=== PATIENT | female | born 1970 | race Caucasian/White ===

== ENCOUNTER → 2016-09-18 | Outpatient (CLI) | payer MEDICAID, OTHER ==
--- NOTE | 2016-09-18 17:37 | Diagnostic Imaging Report ---
PROCEDURE: MR imaging of the brain without contrast. TECHNIQUE: Multiplanar, multisequence MR imaging of the brain was performed without contrast. INDICATION: Confusion and tremors. FINDINGS: There is no diffusion restriction to suggest an acute infarct or other diffusion abnormality. There is mild periventricular and deep white matter T2 hyperintense signal abnormality areas slightly confluent around the ventricles and subcentimeter other lesions are seen. A few lesions are in a subcortical location. There is no abnormal signal seen in the brainstem or the cerebellum. There is also an area of curvilinear flow void suggestive of a tiny dilated vessel seen in the white matter posterior to the atrium of the left lateral ventricle. Surrounding T2 hyperintense area about 1 cm is present. This may relate to a developmental venous anomaly. There are no blood products seen at this site to suggest prior hemorrhage. The lateral ventricles are normal in size. No hypothalamic or pineal region mass. The pituitary gland is normal in size. The central vascular flow voids appear grossly unremarkable. The orbits appear grossly unremarkable. The inferior aspect of the right maxillary sinus demonstrates a 1.8 cm T2 bright lobulated lesion, likely a mucus retention cyst. IMPRESSION: 1. Periventricular, deep and subcortical white matter T2 hyperintense lesions more than expected for the patient's age, which may correlate with a demyelinating disease. Correlate clinically. 2. Incidental note of a minimally dilated vessels posterior to the atrium of the left lateral ventricle is favored to be related to a developmental venous anomaly. 3. Followup enhanced exam in 6 months is suggested. Dictated by: Dictated on workstation # [id number]
== END ==
LOC: RAD 12:57
PROVIDERS: ATTEND Nurse Practitioner Family
DX: R41.3 Other amnesia (principal); R51 Headache; F41.8 Other specified anxiety disorders; G25.0 Essential tremor
CPT/HCPCS: 70551

== ENCOUNTER 2022-05-17 16:38 | Observation (INO) | payer MEDICARE, MEDICAID ==
[~2022-05-17] VITALS: Ht 162.6 cm; Wt 70.0 kg
[2022-05-17 17:05] LABS: BASOPHILS # (AUTO) 0.1 10^3/uL (0.0-0.1); BASOPHILS % (AUTO) 1 % (0-10); EOSINOPHILS # (AUTO) 0.2 10^3/uL (0.0-0.3); EOSINOPHILS % (AUTO) 3 % (0-10); HEMATOCRIT 40 % (35-52); HEMOGLOBIN 13.1 g/dL (11.5-16.0); LYMPHOCYTES # (AUTO) 1.8 10^3/uL (1.0-4.0); LYMPHOCYTES % (AUTO) 27 % (12-44); MEAN CORPUSCULAR HEMOGLOBIN 29 pg (25-34); MEAN CORPUSCULAR HGB CONC 33 g/dL (32-36); MEAN CORPUSCULAR VOLUME 88 fL (80-99); MEAN PLATELET VOLUME 9.6 fL (9.0-12.2); MONOCYTES # (AUTO) 0.6 10^3/uL (0.0-1.0); MONOCYTES % (AUTO) 9 % (0-12); NEUTROPHILS # (AUTO) 4.1 10^3/uL (1.8-7.8); NEUTROPHILS % (AUTO) 61 % (42-75); PLATELET COUNT 324 10^3/uL (130-400); WHITE BLOOD COUNT 6.8 10^3/uL (4.3-11.0)
[2022-05-17 17:09] LABS: ALBUMIN 4.4 GM/DL (3.2-4.5)
[2022-05-17 17:10] LABS: POTASSIUM 3.6 MMOL/L (3.6-5.0)
[2022-05-17 17:11] LABS: CALCIUM 9.2 MG/DL (8.5-10.1); INR 0.9 (0.8-1.4); PROTHROMBIN TIME PATIENT 12.6 SEC (12.2-14.7)
[2022-05-17 17:12] LABS: TOTAL PROTEIN 7.7 GM/DL (6.4-8.2)
[2022-05-17 17:14] LABS: BILIRUBIN,TOTAL 0.3 MG/DL (0.1-1.0)
[2022-05-17 17:16] LABS: CREATININE SERUM 0.73 MG/DL (0.60-1.30)
[2022-05-17 17:18] LABS: MAGNESIUM 2.1 MG/DL (1.6-2.4)
--- NOTE | 2022-05-17 17:23 | Diagnostic Imaging Report ---
INDICATION: Chest pain. TECHNIQUE: Single view chest 4:58 PM. CORRELATION STUDY: None. FINDINGS: Sternal wires are present with aortic valve prosthesis. Heart size, mediastinum and vasculature overall within normal limits. The lungs are clear with no consolidating infiltrate. Likely minimal scarring or atelectasis in the right perihilar region. There is no significant effusion or pneumothorax. IMPRESSION: Negative appearing single view chest. Dictated by: Dictated on workstation # [id number]
--- NOTE | 2022-05-17 17:57 | ED Chest Pain ---
General Chief Complaint: Chest Pain Stated Complaint: TIGHTNESS IN CHEST | HEAVINESS IN LT SHOULDER Nursing Triage Note: CHEST PAIN STARTED 4 DAYS AGO. COMES AND GOES MID STERNAL WITH RADIATION TO LEFT ARM. DIZZY AND SOB Source: patient Exam Limitations: no limitations (RONNIE BAY MD) History of Present Illness Date Seen by Provider: May 17, 2022 Time Seen by Provider: 16:57 Initial Comments This 51-year-old woman presents to the emergency room with primary complaint of chest pressure that radiates to her left arm. She has had this chest pain intermittently for 4 days and it has been present all day today. She also complains of a rather intense right-sided headache that started this morning. She has felt lightheaded and off-balance. She has associated nausea. She reports her disequilibrium is making her feel as though she will fall when she walks. She also complains of some mild cough and throat irritation but denies fever or chills. She reports accelerated blood pressure. She reports blood pressure is elevated because she has been off of her medications for couple of weeks. She ran out of them and has not been able to get them filled because she is establishing at a new clinic. She has an appointment coming up on Thursday but was not able to get medications filled before that appointment. She also takes warfarin for stroke prophylaxis with a mechanical heart valve. She has been off the warfarin for a couple of weeks as well. She reports seeing some dark spots in the vision of her left thigh which is relatively new as well. She is establishing at the [facility] clinic on [facility] in [place]. She does not presently have a map and chart mounter. She reports previously seeing Dr. Foster at the [facility] in [place] but states he is no longer practicing at that location. Last known well time in regard to her neurologic complaints was prior to midnight. She is significantly hypertensive on exam. Patient's verbal report is the primary history source. (RONNIE BAY MD) Allergies and Home Medications Allergies Coded Allergies: Penicillins (Verified Allergy, Unknown, 05/17/22) aspirin (Verified Allergy, Unknown, 05/17/22) diphenhydramine (Verified Allergy, Unknown, 05/17/22) morphine (Verified Allergy, Unknown, 05/17/22) tramadol (Verified Allergy, Unknown, 05/17/22) Patient Home Medication List Home Medication List Reviewed: Yes (RONNIE BAY MD) Home Medication List Reviewed: Yes (RODGER LEON MD) Review of Systems Review of Systems Constitutional: no symptoms reported EENTM: No Symptoms Reported Respiratory: See HPI, Shortness of Air Cardiovascular: See HPI Gastrointestinal: No Symptoms Reported Genitourinary: No Symptoms Reported Musculoskeletal: no symptoms reported Skin: no symptoms reported Psychiatric/Neurological: See HPI Endocrine: No Symptoms Reported Hematologic/Lymphatic: No Symptoms Reported (RONNIE BAY MD) Past Wulonlc-Ucihfd-Rdyzeb Hx Patient Social History Tobacco Use?: Yes Tobacco type used: Cigars Smoking Status: Current Everyday Smoker Use of E-Cig and/or Vaping dev: No Substance use?: No Substance type: Marijuana Substance frequency: Once in a while Alcohol Use?: No Pt feels they are or have been: No (RONNIE BAY MD) Immunizations Up To Date Influenza Vaccine Up-to-Date: No; Not Current First/Initial COVID19 Vaccinat: DECLINED (RONNIE BAY MD) Past Medical History Surgery/Hospitalization HX: HEART VALVE REPLACEMENT, 3 C SECTIONS, GB, APPENDIX, CYST REMOVAL. MED HX: HTN, DEPRESSION,MIGRAINES, ASTHMA, UTI Surgeries: Yes (Ovarian cystectomy) Appendectomy, Section, Gallbladder, Valve Replacement (Mechanical valve replacement) Respiratory: Yes Asthma Cardiac: Yes Valvular Heart Disease (With mechanical valve replacement) Neurological: Yes (Occasional tremors, "brain lesions") : No Reproductive Disorders: No Genitourinary: No Gastrointestinal: No Musculoskeletal: Yes (Cervical spinal stenosis and chronic neck pain) Endocrine: No HEENT: Yes (Strabismus of right eye) Cancer: No Psychosocial: Yes Depression (RONNIE BAY MD) Physical Exam Vital Signs Vital Signs - First Documented 05/17/22 16:40 Temp 36.2 Pulse 79 Resp 15 B/P (MAP) 196/103 (134) Pulse Ox 99 O2 Delivery Room Air (RODGER LEON MD) Vital Signs Capillary Refill : Less Than 3 Seconds (RONNIE BAY MD) Height, Weight, BMI Height: '" Weight: lbs. oz. 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 Otherwise no acute focal deficit) Skin: Normal Color, Warm/Dry (RONNIE BAY MD) Neurologic/Psychiatric: Other (Subtle disequilibrium with gait. Otherwise no acute focal deficit) (RODGER LEON MD) Progress/Results/Core Measures Results/Orders Lab Results Laboratory Tests Test 05/17/22 16:50 05/17/22 17:22 Range/Units White Blood Count 6.8 4.3-11.0 10^3/uL Red Blood Count 4.58 3.80-5.11 10^6/uL Hemoglobin 13.1 11.5-16.0 g/dL Hematocrit 40 35-52 % Mean Corpuscular Volume 88 80-99 fL Mean Corpuscular Hemoglobin 29 25-34 pg Mean Corpuscular Hemoglobin Concent 33 32-36 g/dL Red Cell Distribution Width 15.0 H 10.0-14.5 % Platelet Count 324 130-400 10^3/uL Mean Platelet Volume 9.6 9.0-12.2 fL Immature Granulocyte % (Auto) 0 % Neutrophils (%) (Auto) 61 42-75 % Lymphocytes (%) (Auto) 27 12-44 % Monocytes (%) (Auto) 9 0-12 % Eosinophils (%) (Auto) 3 0-10 % Basophils (%) (Auto) 1 0-10 % Neutrophils # (Auto) 4.1 1.8-7.8 10^3/uL Lymphocytes # (Auto) 1.8 1.0-4.0 10^3/uL Monocytes # (Auto) 0.6 0.0-1.0 10^3/uL Eosinophils # (Auto) 0.2 0.0-0.3 10^3/uL Basophils # (Auto) 0.1 0.0-0.1 10^3/uL Immature Granulocyte # (Auto) 0.0 0.0-0.1 10^3/uL Prothrombin Time 12.6 12.2-14.7 SEC INR Comment 0.9 0.8-1.4 Activated Partial Thromboplast Time 31 24-35 SEC Sodium Level 137 135-145 MMOL/L Potassium Level 3.6 3.6-5.0 MMOL/L Chloride Level 105 98-107 MMOL/L Carbon Dioxide Level 21 21-32 MMOL/L Anion Gap 11 5-14 MMOL/L Blood Urea Nitrogen 6 L 7-18 MG/DL Creatinine 0.73 0.60-1.30 MG/DL Estimat Glomerular Filtration Rate 101 BUN/Creatinine Ratio 8 Glucose Level 87 70-105 MG/DL Calcium Level 9.2 8.5-10.1 MG/DL Corrected Calcium 8.9 8.5-10.1 MG/DL Magnesium Level 2.1 1.6-2.4 MG/DL Total Bilirubin 0.3 0.1-1.0 MG/DL Aspartate Amino Transf (AST/SGOT) 17 5-34 U/L Alanine Aminotransferase (ALT/SGPT) 16 0-55 U/L Alkaline Phosphatase 65 40-136 U/L Myoglobin 35.6 10.0-92.0 NG/ML Troponin I < 0.028 <0.028 NG/ML C-Reactive Protein High Sensitivity 0.17 0.00-0.50 MG/DL B-Type Natriuretic Peptide 88.8 <100.0 PG/ML Total Protein 7.7 6.4-8.2 GM/DL Albumin 4.4 3.2-4.5 GM/DL Influenza Type A (RT-PCR) Not Detected Not Detecte Influenza Type B (RT-PCR) Not Detected Not Detecte SARS-CoV-2 RNA (RT-PCR) Not Detected Not Detecte (RODGER LEON MD) My Orders Orders - RODGER LEON MD Acetaminophen Tablet (Tylenol Tablet) (05/17/22 19:00) Ct Angio Head/Neck (05/17/22 18:48) Ns Iv 1000 Ml (Sodium Chloride 0.9%) (05/17/22 18:48) Iohexol Injection (Omnipaque 350 Mg/Ml 1 (05/17/22 19:00) Received Contrast (Hold Metformin- Contr (05/17/22 19:00) Ns (Ivpb) (Sodium Chloride 0.9% Ivpb Bag (05/17/22 19:00) (RODGER LEON MD) Medications Given in ED Current Medications Medications Dose Ordered Sig/Cliff Route Start Time Stop Time Status Last Admin Dose Admin Acetaminophen 1,000 mg ONCE ONCE PO 05/17/22 19:00 05/17/22 19:01 DC 05/17/22 19:13 1,000 MG Iohexol 100 ml ONCE ONCE IV 05/17/22 19:00 05/17/22 19:01 DC 05/17/22 19:11 75 ML Sodium Chloride 100 ml ONCE ONCE IV 05/17/22 19:00 05/17/22 19:01 DC 05/17/22 19:11 80 ML (RODGER LEON MD) Vital Signs/I&O 05/17/22 16:40 Temp 36.2 Pulse 79 Resp 15 B/P (MAP) 196/103 (134) Pulse Ox 99 O2 Delivery Room Air (RODGER LEON MD) Blood Pressure Mean: 134 Progress Progress Note #1: Time: 18:03 Progress Note Patient was seen and evaluated. She was interviewed by me personally. NIH SS was 0. Given her stated history, she has significant risk factors for severe disease. EKG demonstrated no ischemic changes and sinus rhythm per my interpretation. Patient has neurologic complaint of headache and subtle disequ ilibrium. CT of the head is pending. I am concerned with her warfarin noncompliance in the presence of mechanical heart valve. Chest pain work-up is also being pursued. Progress Note #2: Time: 18:[address] head was viewed by me. There appears to be lucency in the right parietal parenchyma of uncertain chronicity based on my interpretation. Radiologist interpretation is still pending. I have discussed the case with Dr. Leon at shift change, and she will be assuming care. Pending radiologist interpretation of CT head, CT angiogram head and neck may be an appropriate next step. Although she is rather hypertensive, this was not treated yet as acute or subacute stroke was still within the differential. If stroke syndrome remains suspect, permissive hypertension should be considered. Aspirin was not administered due to patient stated allergy. (RONNIE BAY MD) Progress Note : Time: 20:33 Progress Note Patient care assumed by me at shift change. CT angiography does not show any large vessel occlusions. She does have a few abnormalities in the right carotid and lesser in the left, suggestions per radiologist of fibromuscular dysplasia. She will be given weight-based dose Lovenox this evening, continued twice daily. Consultation to Dr. Virk, map and chart mounter. Dr. Flowers, hospitalist will be admitting. We will put her on cardiac stepdown. Vitals have improved her blood pressure is down to the 150s systolic. She is feeling better. (RODGER LEON MD) Initial ECG Impression Date: May 17, 2022 Initial ECG Impression Time: 16:47 Initial ECG Rate: 74 Initial ECG Rhythm: Normal Sinus Initial ECG Intervals: Normal Comment Normal sinus rhythm with no ST elevation or depression. Possible LVH. Borderline QT interval with QTC of 500 ms. (RONNIE BAY MD) Diagnostic Imaging Comments [facility] [place] NAME: MAURICIO OSHEA [facility] REC#: [id number] PT STATUS: REG ER : 1970 PHYSICIAN: RONNIE BAY MD ADMIT DATE: 05/17/22/ER Signed Date of Exam:05/17/22 CHEST 1 VIEW, AP/PA ONLY INDICATION: Chest pain. TECHNIQUE: Single view chest 4:58 PM. CORRELATION STUDY: None. FINDINGS: Sternal wires are present with aortic valve prosthesis. Heart size, mediastinum and vasculature overall within normal limits. The lungs are clear with no consolidating infiltrate. Likely minimal scarring or atelectasis in the right perihilar region. There is no significant effusion or pneumothorax. IMPRESSION: Negative appearing single view chest. Dictated by: Dictated on workstation # [id number] Dict: 05/17/22 1715 Trans: 05/17/221901 [facility] [id number] Interpreted by: HERMINIO CALLES DO Electronically signed by: HERMINIO CALLES DO 05/17/221901 Diagonstic Imaging: CT Comments [facility] [place], [place] NAME: MAURICIO OSHEA [facility] REC#: [id number] PT STATUS: REG ER : 1970 PHYSICIAN: RONNIE BAY MD ADMIT DATE: 05/17/22/ER Signed Date of Exam:05/17/22 CT HEAD WO-R/O STROKE PROCEDURE: CT head w/o r/o stroke. TECHNIQUE: Multiple contiguous axial images were obtained through the brain without the use of intravenous contrast. Auto Exposure Controls were utilized during the CT exam to meet ALARA standards for radiation dose reduction. INDICATION: 51-year-old female, chest pain starting 4 days ago, comes and goes with midsternal radiation to the left arm, dizziness, shortness of breath. Neurological deficit. CORRELATION STUDY: MRI 09/18/2016. FINDINGS: Ventricles and sulci are age-appropriate. There is suggestion of a few very small scattered areas of low-attenuation in the deep white matter, slightly greater than expected for the patient's age (this was noted on prior MRI as well). Slightly more prominent area noted in the right frontal parietal region appears to largely follow sulci distribution. No intracranial hemorrhage. No midline shift or mass effect. Bony calvarium is intact. Probable cyst or polyp in right maxillary sinus. IMPRESSION: A few scattered faint areas of decreased attenuation. Somewhat similar to prior MRI which may reflect senescent changes or changes of small vessel ischemic disease. As suggested on prior MRI study, the possibility of a demyelinating process is not excluded. Given findings and history, if further assessment is desired, follow-up MRI would be recommended. Dictated by: Dictated on workstation # [id number] Dict: 05/17/221803 Trans: 05/17/221902 [facility] [id number] Interpreted by: HERMINIO CALLES DO Electronically signed by: HERMINIO CALLES DO 05/17/221902 Diagonstic Imaging: CT Comments [facility]. [place] NAME: MAURICIO OSHEA [facility] REC#: [id number] PT STATUS: REG ER : 1970 PHYSICIAN: RODGER LEON MD ADMIT DATE: 05/17/22/ER Draft Date of Exam:05/17/22 CT ANGIO HEAD/NECK PROCEDURE: CT angiography of the head and CT angiography of the neck with and without contrast. TECHNIQUE: Contiguous noncontrast images were obtained from the skull base through the vertex. After intravenous contrast administration, helical CT angiography of the neck was performed. Source data was reformatted into 3D MIP projections. Delayed post contrast acquisition was also obtained. Auto Exposure Controls were utilized during the CT exam to meet ALARA standards for radiation dose reduction. INDICATION: 51-year-old female, disequilibrium, headache, off Coumadin x 2 weeks. COMPARISON: CT head 05/17/2022. FINDINGS: CTA NECK: Aorta: Aortic arch is limited in evaluation with artifact present. Does appear relatively normal, with standard three vessel branching pattern. Note made of prior sternotomy with cardiac valve. Right Common/Internal/External Carotid Artery: Right common carotid artery unremarkable. Carotid bifurcation unremarkable. External carotid arteries are patent. At the mid to distal aspect of the extracranial ICA, there is an irregular, somewhat beaded appearance about the internal carotid artery. Definitive intraluminal filling defect is not otherwise suggested and artery is patent to the skull base. Left Common/Internal/External Carotid Artery: Left common carotid artery, carotid bifurcation as well as external carotid artery are patent. There is some redundancy of the internal carotid artery. Question of very slight irregularity of the mid aspect of the left internal carotid artery but less pronounced than that on the right. The carotid artery is patent to the level of the skull base. Vertebral arteries: Dominant right vertebral artery. Vertebral arteries are patent to the skull base. Distal left vertebral artery becomes fairly small and is nearly string-like and appears to terminate into a PICA. Non-vascular: No concerning cervical lymphadenopathy. Lung apices with subpleural bullous changes. CTA HEAD: Anterior Circulation: The intracranial internal carotid arteries are patent. The bilateral middle cerebral arteries are patent and without stenosis. The anterior cerebral arteries are patent and without stenosis. Posterior Circulation: Dominant right vertebral artery terminates into the basilar artery. String-like left vertebral artery appears to terminate into a PICA. The basilar artery is patent and without stenosis. The posterior cerebral arteries are patent. Post Contrast Head: No abnormal areas of intracranial enhancement. Dural venous system patent. IMPRESSION: 1. CTA [place] demonstrates a very small distal left vertebral artery appears to terminate into a PICA. No definitive evidence for large vessel occlusion. 2. Abnormal appearance about the right internal carotid artery and to a lesser degree left internal carotid artery. Imaging features suggest probable fibromuscular dysplasia. The irregularity on the right is considered at least moderate in severity. 3. Given the patient's significant symptoms, if further assessment is desired, MRI would be recommended. Dictated on workstation # [id number] Dict: 05/17/221912 Trans: 05/17/221999 E [id number] Interpreted by: HERMINIO CALLES DO Electronically signed by: (RODGER LEON MD) Departure Communication (Admissions) Time/Spoke to Admitting Phy: 20:[address] Flowers Time/Spoke to Consulting Phy: 20:[address] Virk (RODGER LEON MD) Impression Primary Impression: Chest pain Qualified Codes: R07.9 - Chest pain, unspecified Additional Impressions: Headache Qualified Codes: R51.9 - Headache, unspecified Dysequilibrium Mechanical heart valve present Subtherapeutic anticoagulation Disposition: ADMITTED INPATIENT Condition: Stable Admissions Decision to Admit Reason: Admit from ER (General) Decision to Admit/Date: May 17, 2022 Time/Decision to Admit Time: 20:33 (RODGER LEON MD) Departure-Patient Inst. Referrals: REYES AMAYA DO (PCP) Primary Care Physician [facility] (Family) Primary Care Physician Copy Copies To 1: REYES AMAYA JOSHUA T MD May 17, 2022 17:57 RODGER LEON MD May 17, 2022 20:16
--- NOTE | 2022-05-17 18:34 | Diagnostic Imaging Report ---
PROCEDURE: CT head w/o r/o stroke. TECHNIQUE: Multiple contiguous axial images were obtained through the brain without the use of intravenous contrast. Auto Exposure Controls were utilized during the CT exam to meet ALARA standards for radiation dose reduction. INDICATION: 51-year-old female, chest pain starting 4 days ago, comes and goes with midsternal radiation to the left arm, dizziness, shortness of breath. Neurological deficit. CORRELATION STUDY: MRI 09/18/2016. FINDINGS: Ventricles and sulci are age-appropriate. There is suggestion of a few very small scattered areas of low-attenuation in the deep white matter, slightly greater than expected for the patient's age (this was noted on prior MRI as well). Slightly more prominent area noted in the right frontal parietal region appears to largely follow sulci distribution. No intracranial hemorrhage. No midline shift or mass effect. Bony calvarium is intact. Probable cyst or polyp in right maxillary sinus. IMPRESSION: A few scattered faint areas of decreased attenuation. Somewhat similar to prior MRI which may reflect senescent changes or changes of small vessel ischemic disease. As suggested on prior MRI study, the possibility of a demyelinating process is not excluded. Given findings and history, if further assessment is desired, follow-up MRI would be recommended. Dictated by: Dictated on workstation # [id number]
[2022-05-17] MEDS ORDERED: NS IV 1000 ML 1,000 ML IV STA (18:48)
[2022-05-17] MEDS ORDERED: NS 100 ML (IVPB) BAG IV ONE (19:00)
[2022-05-17] MEDS ORDERED: ACETAMINOPHEN 500 MG TAB (TYLENOL) PO ONE (19:00)
[2022-05-17] MEDS ORDERED: IOHEXOL 350 MG/ML 100 ML (OMNIPAQUE 350) VIAL IV ONE (19:00)
[2022-05-17] MEDS ORDERED: HOLD METFORMIN - RECEIVED CONTRAST 20 ML VIAL IV SCH (19:00)
--- NOTE | 2022-05-17 20:02 | Diagnostic Imaging Report ---
PROCEDURE: CT angiography of the head and CT angiography of the neck with and without contrast. TECHNIQUE: Contiguous noncontrast images were obtained from the skull base through the vertex. After intravenous contrast administration, helical CT angiography of the neck was performed. Source data was reformatted into 3D MIP projections. Delayed post contrast acquisition was also obtained. Auto Exposure Controls were utilized during the CT exam to meet ALARA standards for radiation dose reduction. INDICATION: 51-year-old female, disequilibrium, headache, off Coumadin x 2 weeks. COMPARISON: CT head 05/17/2022. FINDINGS: CTA NECK: Aorta: Aortic arch is limited in evaluation with artifact present. Does appear relatively normal, with standard three vessel branching pattern. Note made of prior sternotomy with cardiac valve. Right Common/Internal/External Carotid Artery: Right common carotid artery unremarkable. Carotid bifurcation unremarkable. External carotid arteries are patent. At the mid to distal aspect of the extracranial ICA, there is an irregular, somewhat beaded appearance about the internal carotid artery. Definitive intraluminal filling defect is not otherwise suggested and artery is patent to the skull base. Left Common/Internal/External Carotid Artery: Left common carotid artery, carotid bifurcation as well as external carotid artery are patent. There is some redundancy of the internal carotid artery. Question of very slight irregularity of the mid aspect of the left internal carotid artery but less pronounced than that on the right. The carotid artery is patent to the level of the skull base. Vertebral arteries: Dominant right vertebral artery. Vertebral arteries are patent to the skull base. Distal left vertebral artery becomes fairly small and is nearly string-like and appears to terminate into a PICA. Non-vascular: No concerning cervical lymphadenopathy. Lung apices with subpleural bullous changes. CTA HEAD: Anterior Circulation: The intracranial internal carotid arteries are patent. The bilateral middle cerebral arteries are patent and without stenosis. The anterior cerebral arteries are patent and without stenosis. Posterior Circulation: Dominant right vertebral artery terminates into the basilar artery. String-like left vertebral artery appears to terminate into a PICA. The basilar artery is patent and without stenosis. The posterior cerebral arteries are patent. Post Contrast Head: No abnormal areas of intracranial enhancement. Dural venous system patent. IMPRESSION: 1. CTA tribe of [place] demonstrates a very small distal left vertebral artery appears to terminate into a PICA. No definitive evidence for large vessel occlusion. 2. Abnormal appearance about the right internal carotid artery and to a lesser degree left internal carotid artery. Imaging features suggest probable fibromuscular dysplasia. The irregularity on the right is considered at least moderate in severity. 3. Given the patient's significant symptoms, if further assessment is desired, MRI would be recommended. Dictated by: Dictated on workstation # [id number]
[2022-05-17] MEDS ORDERED: ENOXAPARIN 80 MG/0.8 ML (LOVENOX) SYR SC ONE (20:45)
[2022-05-17 21:30] VITALS: BP 172/88
[2022-05-17 21:45] VITALS: BP 176/89
[2022-05-17] MEDS ORDERED: NALOXONE 0.4 MG/ML 1 ML (NARCAN) VIAL IV PRN (21:45)
[2022-05-17] MEDS ORDERED: MELATONIN 3 MG TABLET PO PRN (21:45)
[2022-05-17] MEDS ORDERED: ONDANSETRON 4 MG (ZOFRAN) ORAL DISSOLVE TAB PO PRN (21:45)
[2022-05-17] MEDS ORDERED: CALCIUM CARBONATE 500 MG (TUMS) TAB.CHEW PO PRN (21:45)
[2022-05-17] MEDS ORDERED: NITROGLYCERIN 0.4 MG SL TABS BTL 25'S SL PRN (21:45)
[2022-05-17] MEDS ORDERED: LACTULOSE SYRUP 10GM/15ML (ENULOSE) 30ML UDC PO PRN (21:45)
[2022-05-17] MEDS ORDERED: amLODIPine 5 MG (NORVASC) TAB PO ONE (21:45)
[2022-05-17] MEDS ORDERED: MILK OF MAGNESIA 400 MG/5 ML 30 ML UDC PO PRN (21:45)
[2022-05-17] MEDS ORDERED: polyethylene glycoL POWDER 17 GM (MIRALAX) PACK PO PRN (21:45)
[2022-05-17] MEDS ORDERED: ANTACID SUSP 30 ML UDC (MYLANTA) PO PRN (21:45)
[2022-05-17] MEDS ORDERED: ONDANSETRON 4 MG/2 ML (SDV) Z0FRAN IV PRN (21:45)
[2022-05-17] MEDS ORDERED: PATIENT MAY USE OWN MEDS, ALL PO SCH (21:45)
[2022-05-17] MEDS ORDERED: BISACODYL 10 MG SUPP (DULCOLAX) PR PRN (21:45)
[2022-05-17] MEDS ORDERED: HYDROmorphone 2 MG/ML VIAL (DILAUDID) IV PRN (21:45)
[2022-05-17 23:00] VITALS: BP 170/88
[2022-05-17] MEDS: cloNIDine 0.1 MG (CATAPRES) TAB PO PRN (23:11)
[2022-05-17] MEDS ORDERED: RT-ALBUTEROL SULF 2.5 MG/3 ML PRE-MIX VIAL INH PRN (23:15)
[2022-05-18] VITALS (12 sets, daily range): BP systolic 123–162; BP diastolic 57–90
[2022-05-18 03:45] LABS: HEMATOCRIT 34 % (35-52); HEMOGLOBIN 10.8 g/dL (11.5-16.0); MEAN CORPUSCULAR HEMOGLOBIN 28 pg (25-34); MEAN CORPUSCULAR HGB CONC 32 g/dL (32-36); MEAN CORPUSCULAR VOLUME 89 fL (80-99); MEAN PLATELET VOLUME 10.1 fL (9.0-12.2); PLATELET COUNT 257 10^3/uL (130-400); WHITE BLOOD COUNT 5.4 10^3/uL (4.3-11.0)
[2022-05-18 04:00] LABS: ALBUMIN 3.3 GM/DL (3.2-4.5)
[2022-05-18 04:01] LABS: CALCIUM 8.4 MG/DL (8.5-10.1)
[2022-05-18 04:03] LABS: TOTAL PROTEIN 5.8 GM/DL (6.4-8.2)
[2022-05-18 04:05] LABS: BILIRUBIN,TOTAL 0.2 MG/DL (0.1-1.0)
[2022-05-18 04:06] LABS: CREATININE SERUM 0.69 MG/DL (0.60-1.30)
[2022-05-18] MEDS ORDERED: FLU QUADRIvalent (6 months+) 60 mcg/0.5 ml 2022-23 (Fluzone) IM ONE (07:30)
--- NOTE | 2022-05-18 08:03 | History & Physical-Hospitalist ---
History of Present Illness HPI/Chief Complaint Chief complaint: chest pain HPI: This is a 51-year-old female with a past medical history of mechanical heart valve performed by Dr. Foster at [facility] who presented to the ER with chest pain. Troponins negative. She had run out of her Coumadin several weeks ago. INR 0.9. Lovenox bridge started last night on admission and Coumadin 10 mg started. Patient having no new problems. Will transfer down to fourth floor. Source: patient Exam Limitations: no limitations Date Seen 05/18/22 Time Seen by a Provider: 11:00 Attending Physician Manisha Cota DO PCP Admitting Physician: Michelle Flowers DO Attending Physician: Michelle Flowers DO Referring Physician Date of Admission May 17, 2022 at 20:36 Home Medications & Allergies Home Medications Reviewed patient Home Medication Reconciliation performed by pharmacy medication reconciliations lot technician and/or nursing. Patients Allergies have been reviewed. Allergies Allergies Coded Allergies Penicillins (Verified Allergy, Unknown, 05/17/22) aspirin (Verified Allergy, Unknown, 05/17/22) diphenhydramine (Verified Allergy, Unknown, 05/17/22) morphine (Verified Allergy, Unknown, 05/17/22) tramadol (Verified Allergy, Unknown, 05/17/22) Past Uchayjd-Ebxorg-Obpxap Hx Patient Social History Marrital Status: single Employed/Student: unemployed Tobacco Use?: Yes Tobacco type used: Cigarettes Smoking Status: Current Everyday Smoker Smokeless Tobacco Frequency: Never a User Use of E-Cig and/or Vaping dev: No Substance use?: Yes Substance type: Marijuana Additional substance use comme: FOR PAIN Substance frequency: Couple times a week Alcohol Use?: No Pt feels they are or have been: No Immunizations Up To Date First/Initial COVID19 Vaccinat: DECLINED Tetanus Booster (TDap): More Than 5 Years Hepatitis A: No Hepatitis B: No Current Status status: No Advance Directives: No Communicates: Verbally Primary Language: Spanish Preferred Spoken Language: Spanish Is interpretation needed?: No Sensory deficits: Vision impairment Implanted or Applied Medical D: None Past Medical History Surgeries: Appendectomy, Section, Gallbladder, Valve Replacement (Me chanical valve replacement) Asthma Valvular Heart Disease (With mechanical valve replacement) Depression Review of Systems Constitutional: see HPI Cardiovascular: chest pain Physical Exam Physical Exam Vital Signs Vital Signs - First Documented 05/17/22 05/17/22 16:40 23:10 Temp 36.2 Pulse 79 Resp 15 B/P (MAP) 196/103 (134) Pulse Ox 99 O2 Delivery Room Air FiO2 21 Capillary Refill : Less Than 3 Seconds Height, Weight, BMI Height: '" Weight: lbs. oz. kg; 26.47 BMI Method: General Appearance: No Apparent Distress Eyes: Right Eye Normal Inspection, Right Eye PERRL HEENT: PERRL/EOMI, Normal ENT Inspection, Pharynx Normal, Moist Mucous Membranes Neck: Full Range of Motion, Normal Inspection, Non Tender Respiratory: Chest Non Tender, Lungs Clear, Normal Breath Sounds, No Accessory Muscle Use, No Respiratory Distress Cardiovascular: Regular Rate, Rhythm, No Edema, No Gallop, No JVD, No Murmur, Normal Peripheral Pulses Gastrointestinal: Normal Bowel Sounds, No Organomegaly, No Pulsatile Mass, Non Tender, Soft Back: Normal Inspection, No CVA Tenderness, No Vertebral Tenderness Extremity: Normal Capillary Refill, Normal Inspection, Normal Range of Motion, Non Tender, No Calf Tenderness, No Pedal Edema Neurologic/Psychiatric: Alert, Oriented x3, No Motor/Sensory Deficits, Normal Mood/Affect Skin: Normal Color, Warm/Dry Lymphatic: No Adenopathy Results Results/Procedures Labs Laboratory Tests 05/17/22 16:50 05/18/22 03:25 Patient resulted labs reviewed. Assessment/Plan Admission Diagnosis Assessment: Chest pain no evidence of ACS Mechanical heart valve Noncompliance with Coumadin requiring bridge of Lovenox Plan: Lovenox bridge Coumadin Monitor closely Admission Status: Observation Clinical Quality Measures AMI/AHF: ASA po Prior to arrival: No (ALLERGIC) MICHELLE FLOWERS DO May 18, 2022 08:02
--- NOTE | 2022-05-18 08:29 | Tele-ICU Progress Note ---
Progress Note video rounds completed 51 y/o female admitted with disequilibrium. Has hx of mechanical herat valve and on coumadin Currently hemodynamically normal On lovenox 70mg BID for anticoagulation Labds stable IMP: disequilibrium work up in progress currently stable PLAN: no acute changes for intervention Focused Exam Height, Weight, BMI Height: '" Weight: lbs. oz. kg; 26.47 BMI Method: Labs Laboratory Tests 05/17/22 16:50 05/18/22 03:25 Results Results/Procedures Lab Laboratory Tests 05/17/22 16:50 05/18/22 03:25 Results Results/Procedures Labs Laboratory Tests 05/17/22 16:50 05/18/22 03:25 Patient resulted labs reviewed. Results Labs Labs Laboratory Tests 05/17/22 16:50: White Blood Count 6.8, Red Blood Count 4.58, Hemoglobin 13.1, Hematocrit 40, Mean Corpuscular Volume 88, Mean Corpuscular Hemoglobin 29, Mean Corpuscular Hemoglobin Concent 33, Red Cell Distribution Width 15.0H, Platelet Count 324, Mean Platelet Volume 9.6, Immature Granulocyte % (Auto) 0, Neutrophils (%) (Auto) 61, Lymphocytes (%) (Auto) 27, Monocytes (%) (Auto) 9, Eosinophils (%) (Auto) 3, Basophils (%) (Auto) 1, Neutrophils # (Auto) 4.1, Lymphocytes # (Auto) 1.8, Monocytes # (Auto) 0.6, Eosinophils # (Auto) 0.2, Basophils # (Auto) 0.1, Immature Granulocyte # (Auto) 0.0, Prothrombin Time 12.6, INR Comment 0.9, Activated Partial Thromboplast Time 31, Sodium Level 137, Potassium Level 3.6, Chloride Level 105, Carbon Dioxide Level 21, Anion Gap 11, Blood Urea Nitrogen 6L, Creatinine 0.73, Estimat Glomerular Filtration Rate 101, BUN/Creatinine Ratio 8, Glucose Level 87, Calcium Level 9.2, Corrected Calcium 8.9, Magnesium Level 2.1, Total Bilirubin 0.3, Aspartate Amino Transf (AST/SGOT) 17, Alanine Aminotransferase (ALT/SGPT) 16, Alkaline Phosphatase 65, Myoglobin 35.6, Troponin I < 0.028, C-Reactive Protein High Sensitivity 0.17, B-Type Natriuretic Peptide 88.8, Total Protein 7.7, Albumin 4.4 05/17/22 17:22: Influenza Type A (RT-PCR) Not Detected, Influenza Type B (RT-PCR) Not Detected, SARS-CoV-2 RNA (RT-PCR) Not Detected 05/18/22 03:25: White Blood Count 5.4, Red Blood Count 3.83, Hemoglobin 10.8L, Hematocrit 34L, Mean Corpuscular Volume 89, Mean Corpuscular Hemoglobin 28, Mean Corpuscular Hemoglobin Concent 32, Red Cell Distribution Width 14.9H, Platelet Count 257, Mean Platelet Volume 10.1, Sodium Level 137, Potassium Level 4.0, Chloride Level 109H, Carbon Dioxide Level 19L, Anion Gap 9, Blood Urea Nitrogen 6L, Creatinine 0.69, Estimat Glomerular Filtration Rate 106, BUN/Creatinine Ratio 9, Glucose Level 88, Calcium Level 8.4L, Corrected Calcium 9.0, Total Bilirubin 0.2, Aspartate Amino Transf (AST/SGOT) 13, Alanine Aminotransferase (ALT/SGPT) 11, Alkaline Phosphatase 58, Total Protein 5.8L, Albumin 3.3, Triglycerides Level 78, Cholesterol Level 159, LDL Cholesterol Direct 107, VLDL Cholesterol 16, HDL Cholesterol 38L ZULEIKA MOESR MD May 18, 2022 08:29
[2022-05-18] MEDS: amLODIPine 5 MG (NORVASC) TAB PO SCH (08:45)
[2022-05-18] MEDS: ENOXAPARIN 80 MG/0.8 ML (LOVENOX) SYR SC SCH ×2 (08:46→20:03)
[2022-05-18] MEDS: DOCUSATE SODIUM 100 MG (COLACE) CAP PO SCH ×2 (08:58→20:03)
[2022-05-18] MEDS: SENNOSIDES 8.6 MG (SENOKOT) TAB PO SCH ×2 (08:58→20:03)
--- NOTE | 2022-05-18 09:20 | Consultation-Cardiology ---
HPI-Cardiology Cardiology Consultation Date of Consultation 05/18/22 Date of Admission Time Seen by Provider: 09:15 Indication: Chest pain HPI 51-year-old lady with history of aortic valve replacement done [place] [address] Foster in [facility], history of normal cardiac catheterization and 2020 prior to her bypass surgery. Patient has run out of her medication for the past 2 weeks. She has been feeling dizzy and lightheaded, reporting history of tremor and neuropathy. Has been seeing a neurologist. Started to have chest pain and came to the emergency room for evaluation, EKG did not show any acute abnormality and cardiac enzymes were normal. On my evaluation this morning she reported that she is feeling back to baseline. Denied any chest pain. No palpitation Home Medications & Allergies Allergies: Coded Allergies: Penicillins (Verified Allergy, Unknown, 05/17/22) aspirin (Verified Allergy, Unknown, 05/17/22) diphenhydramine (Verified Allergy, Unknown, 05/17/22) morphine (Verified Allergy, Unknown, 05/17/22) tramadol (Verified Allergy, Unknown, 05/17/22) Home Medication List Reviewed: Yes IPH-Hgqdog-Aiwznx Hx Patient Social History Marital Status: Employed/Student: unemployed Smoking Status: Current Everyday Smoker Have you traveled recently?: No Alcohol Use?: No Substance type: Marijuana Past Medical History Discussed below Family Medical History Significant Family History: No Pertinent Family Hx Review of Systems-General Review of Systems Constitutional: no symptoms reported, malaise EENTM: see HPI, no symptoms reported Respiratory: no symptoms reported, see HPI Cardiovascular: see HPI, chest pain; No edema, No Hx of Intervention, No palpitations, No syncope, No vascular heart diseas, No other Gastrointestinal: no symptoms reported, see HPI Genitourinary: no symptoms reported, see HPI Musculoskeletal: no symptoms reported Skin: no symptoms reported Psychiatric/Neurological: See HPI, Headache, Paresthesia, Tremors Reviewed Test Results Reviewed Test Results Lab Laboratory Tests Test 05/17/22 16:50 05/17/22 17:22 05/18/22 03:25 Range/Units White Blood Count 6.8 5.4 4.3-11.0 10^3/uL Red Blood Count 4.58 3.83 3.80-5.11 10^6/uL Hemoglobin 13.1 10.8 L 11.5-16.0 g/dL Hematocrit 40 34 L 35-52 % Mean Corpuscular Volume 88 89 80-99 fL Mean Corpuscular Hemoglobin 29 28 25-34 pg Mean Corpuscular Hemoglobin Concent 33 32 32-36 g/dL Red Cell Distribution Width 15.0 H 14.9 H 10.0-14.5 % Platelet Count 324 257 130-400 10^3/uL Mean Platelet Volume 9.6 10.1 9.0-12.2 fL Immature Granulocyte % (Auto) 0 % Neutrophils (%) (Auto) 61 42-75 % Lymphocytes (%) (Auto) 27 12-44 % Monocytes (%) (Auto) 9 0-12 % Eosinophils (%) (Auto) 3 0-10 % Basophils (%) (Auto) 1 0-10 % Neutrophils # (Auto) 4.1 1.8-7.8 10^3/uL Lymphocytes # (Auto) 1.8 1.0-4.0 10^3/uL Monocytes # (Auto) 0.6 0.0-1.0 10^3/uL Eosinophils # (Auto) 0.2 0.0-0.3 10^3/uL Basophils # (Auto) 0.1 0.0-0.1 10^3/uL Immature Granulocyte # (Auto) 0.0 0.0-0.1 10^3/uL Prothrombin Time 12.6 12.2-14.7 SEC INR Comment 0.9 0.8-1.4 Activated Partial Thromboplast Time 31 24-35 SEC Sodium Level 137 137 135-145 MMOL/L Potassium Level 3.6 4.0 3.6-5.0 MMOL/L Chloride Level 105 109 H 98-107 MMOL/L Carbon Dioxide Level 21 19 L 21-32 MMOL/L Anion Gap 11 9 5-14 MMOL/L Blood Urea Nitrogen 6 L 6 L 7-18 MG/DL Creatinine 0.73 0.69 0.60-1.30 MG/DL Estimat Glomerular Filtration Rate 101 106 BUN/Creatinine Ratio 8 9 Glucose Level 87 88 70-105 MG/DL Calcium Level 9.2 8.4 L 8.5-10.1 MG/DL Corrected Calcium 8.9 9.0 8.5-10.1 MG/DL Magnesium Level 2.1 1.6-2.4 MG/DL Total Bilirubin 0.3 0.2 0.1-1.0 MG/DL Aspartate Amino Transf (AST/SGOT) 17 13 5-34 U/L Alanine Aminotransferase (ALT/SGPT) 16 11 0-55 U/L Alkaline Phosphatase 65 58 40-136 U/L Myoglobin 35.6 10.0-92.0 NG/ML Troponin I < 0.028 <0.028 NG/ML C-Reactive Protein High Sensitivity 0.17 0.00-0.50 MG/DL B-Type Natriuretic Peptide 88.8 <100.0 PG/ML Total Protein 7.7 5.8 L 6.4-8.2 GM/DL Albumin 4.4 3.3 3.2-4.5 GM/DL Influenza Type A (RT-PCR) Not Detected Not Detecte Influenza Type B (RT-PCR) Not Detected Not Detecte SARS-CoV-2 RNA (RT-PCR) Not Detected Not Detecte Triglycerides Level 78 <150 MG/DL Cholesterol Level 159 < 200 MG/DL LDL Cholesterol Direct 107 1-129 MG/DL VLDL Cholesterol 16 5-40 MG/DL HDL Cholesterol 38 L 40-60 MG/DL Physical Exam Physical Exam Vital Signs Vital Signs - First Documented 05/17/22 05/17/22 16:40 23:10 Temp 36.2 Pulse 79 Resp 15 B/P (MAP) 196/103 (134) Pulse Ox 99 O2 Delivery Room Air FiO2 21 Capillary Refill : Less Than 3 Seconds Height, Weight, BMI Height: '" Weight: lbs. oz. kg; 26.47 BMI Method: General Appearance: No Apparent Distress, WD/WN Eyes: Bilateral Eye Normal Inspection, Bilateral Eye PERRL, Bilateral Eye EOMI HEENT: PERRL/EOMI (Chronic strabismus with lateral deviation of the right eye), Normal ENT Inspection Neck: Normal Inspection; No JVD Respiratory: Chest Non Tender, No Accessory Muscle Use, No Respiratory Distress; No Crackles; Wheezing (Intermittent squeaky wheezing) Cardiovascular: Regular Rate, Rhythm, No Edema, Systolic Murmur, Other (Metallic click) Gastrointestinal: Normal Bowel Sounds, Non Tender, Soft Back: Normal Inspection, No CVA Tenderness, No Vertebral Tenderness Extremity: Normal Inspection, No Pedal Edema Neurologic/Psychiatric: Other (Subtle disequilibrium with gait. Otherwise no acute focal deficit) Skin: Normal Color, Warm/Dry Lymphatic: No Adenopathy A/P-Cardiology Admission Diagnosis Chest pain Aortic valve replacement Hypertension Tobaccoism Assessment/Plan Chest pain nonspecific etiology, atypical in presentation Probably secondary to severe hypertension Blood pressure is better and chest pain has improved EKG and cardiac enzymes did not show any acute abnormality Cardiac catheterization according to the patient was done in 2019 in [facility] and it was normal prior to having her aortic valve replacement. Did not require any stenting. Aortic valve replacement, patient has a card of [email or web address] mechanical valve, surgery was done in [address] Foster in [facility] [place] out of her Coumadin for the past 2 weeks. Started on Lovenox and will continue with loading with Coumadin Hypertension, poor control, started on amlodipine I will add Toprol and monitor blood pressure and Evaluate 2D echo History of neuropathy, recurrent headache and tremor, herniated disc. Has been following with a neurologist, maintained on gabapentin Tobaccoism, educated on smoking cessation Noncompliant with medication, educated about the importance with compliance and educated about calling her primary physician to have a refill on her Coumadin instead of waiting for an appointment with a new doctor Clinical Quality Measures AMI/AHF: ASA po Prior to arrival: No (ALLERGIC) ROSA MARTINEZ MD May 18, 2022 09:20
[2022-05-18] MEDS ORDERED: warFARin 10 MG (COUMADIN) TAB PO NR (09:30)
[2022-05-18] MEDS: ACETAMINOPHEN 325 MG TABLET PO PRN (14:38)
[2022-05-18] MEDS: cloNIDine 0.1 MG (CATAPRES) TAB PO PRN (20:29)
[2022-05-19 03:09] VITALS: BP 143/63
[2022-05-19] MEDS: ACETAMINOPHEN 325 MG TABLET PO PRN (03:32)
[2022-05-19 05:38] LABS: HEMATOCRIT 37 % (35-52); HEMOGLOBIN 11.5 g/dL (11.5-16.0); MEAN CORPUSCULAR HEMOGLOBIN 28 pg (25-34); MEAN CORPUSCULAR HGB CONC 31 g/dL (32-36); MEAN CORPUSCULAR VOLUME 89 fL (80-99); MEAN PLATELET VOLUME 9.8 fL (9.0-12.2); PLATELET COUNT 281 10^3/uL (130-400); WHITE BLOOD COUNT 4.5 10^3/uL (4.3-11.0)
[2022-05-19 05:47] LABS: ALBUMIN 3.6 GM/DL (3.2-4.5)
[2022-05-19 05:48] LABS: POTASSIUM 4.2 MMOL/L (3.6-5.0)
[2022-05-19 05:49] LABS: CALCIUM 8.5 MG/DL (8.5-10.1)
[2022-05-19 05:50] LABS: TOTAL PROTEIN 6.6 GM/DL (6.4-8.2)
[2022-05-19 05:51] LABS: INR 1.1 (0.8-1.4); PROTHROMBIN TIME PATIENT 14.9 SEC (12.2-14.7)
[2022-05-19 05:52] LABS: BILIRUBIN,TOTAL 0.2 MG/DL (0.1-1.0)
[2022-05-19 05:54] LABS: CREATININE SERUM 0.74 MG/DL (0.60-1.30)
[2022-05-19 07:42] VITALS: BP 155/76
[2022-05-19] MEDS: amLODIPine 5 MG (NORVASC) TAB PO SCH (07:49)
[2022-05-19] MEDS: SENNOSIDES 8.6 MG (SENOKOT) TAB PO SCH (07:51)
[2022-05-19] MEDS: ENOXAPARIN 80 MG/0.8 ML (LOVENOX) SYR SC SCH (07:51)
[2022-05-19] MEDS: DOCUSATE SODIUM 100 MG (COLACE) CAP PO SCH (07:51)
[2022-05-19] MEDS ORDERED: amLODIPine 5 MG (NORVASC) TAB PO ONE (09:00)
[2022-05-19] MEDS ORDERED: amLODIPine 10 MG (NORVASC) TAB PO SCH (09:00)
--- NOTE | 2022-05-19 09:43 | Cardiology Progress Note ---
Subjective Date Seen by Provider: May 19, 2022 Time Seen by Provider: 09:40 Subjective/Events-last exam Patient was seen at bedside, sitting comfortably, feeling better Review of Systems General: No Chills, No Night Sweats, No Fatigue, No Malaise, No Appetite, No Other HEENT: No Head Aches, No Visual Changes, No Eye Pain, No Ear Pain, No Dysphasia, No Sinus Congestion, No Post Nasal Drip, No Sore Throat, No Other Pulmonary: No Dyspnea, No Cough, No Pleuritic Chest Pain, No Other Cardiovascular: No: Chest Pain, Palpitations, Orthopnea, Paroxysmal Noc. Dyspnea, Edema, Lt Headedness, Other Objective-Cardiology Exam Last Set of Vital Signs Vital Signs 05/17/22 05/19/22 05/19/22 23:10 07:42 07:59 Temp 36.5 Pulse 60 Resp 18 B/P (MAP) 155/76 (102) Pulse Ox 97 O2 Delivery Room Air FiO2 21 I&O Intake and Output 05/19/22 00:00 Intake Total 1714 ml Output Total 400 ml Balance 1314 ml Intake Oral 1714 ml Output Urine Total 400 ml # Voids 4 General: Alert, Oriented X3, Cooperative HEENT: Atraumatic, PERRLA Neck: Supple, No JVD, No Thyromegaly Lungs: Clear to Auscultation, Normal Air Movement Heart: Regular Rate, Normal S1, Normal S2, Other (Metallic click) Abdomen: Normal Bowel Sounds, Soft, No Tenderness, No Hepatosplenomegaly, No Masses Extremities: No Clubbing, No Cyanosis, No Edema, Normal Pulses, No Tenderness/Swelling Skin: No Rashes, No Breakdown, No Significant Lesion Neuro: Normal Gait, Normal Speech, Strength at 5/5 X4 Ext, Normal Tone, Sensation Intact Psych/Mental Status: Mental Status NL, Mood NL Results Lab Laboratory Tests 05/19/22 05:02 A/P-Cardiology Admission Diagnosis Chest pain Aortic valve replacement Hypertension Tobaccoism Assessment/Plan Chest pain nonspecific etiology, atypical in presentation Probably secondary to severe hypertension Blood pressure is better and chest pain has improved EKG and cardiac enzymes did not show any acute abnormality Cardiac catheterization according to the patient was done in 2019 in [facility] and it was normal prior to having her aortic valve replacement. Did n ot require any stenting. Mitral valve replacement, patient has a card of [employer] mechanical valve, surgery was done in [address] Foster in [facility] [place] out of her Coumadin for the past 2 weeks. Started on Lovenox and will continue with loading with Coumadin 2D echo was done on May 18, 2022 with normal LV size, EF 60 to 65%, prosthetic valve in the mitral position, functioning normally. Moderate tricuspid regurgitation, PA 30 to 35 mmHg Hypertension, better controlled, monitor blood pressure History of neuropathy, recurrent headache and tremor, herniated disc. Has been following with a neurologist, maintained on gabapentin Tobaccoism, educated on smoking cessation Noncompliant with medication, educated about the importance with compliance and educated about calling her primary physician to have a refill on her Coumadin instead of waiting for an appointment with a new doctor Okay for discharge from cardiology standpoint if she can continue on Coumadin and Lovenox, monitor daily INR ROSA MARTINEZ MD May 19, 2022 09:43
[2022-05-19] MEDS ORDERED: ENOX120D5 SQ (10:52)
[2022-05-19] MEDS ORDERED: AMLO-251 PO (10:52)
[2022-05-19] MEDS ORDERED: WRF5T PO (10:52)
--- NOTE | 2022-05-19 10:57 | Discharge Summary ---
Discharge Summary Hospital Course Hospital Course Date of Admission: May 17, 2022 at 20:36 Admission Diagnosis : Chest pain no evidence of ACS Mechanical heart valve Noncompliance with Coumadin requiring bridge of Lovenox [facility]: 05/19/22 Discharge Diagnosis: Chest pain nonspecific etiology, atypical in presentation -Cardiac catheterization according to the patient was done in 2019 in [facility] and it was normal prior to having her aortic valve replacement. Did not require any stenting. Mitral valve replacement- mechanical valve, surgery was done in [address] Foster in [facility] [place]. Ran out of Coumadin, Started on Lovenox and will continue with loading with Coumadin, discharged with script for Lovenox at home and daily INR while resuming Coumadin. -2D echo 05/18/22 with normal LV size, EF 60 to 65%, prosthetic mitral valve, functioning normally. Hypertension- reports had been on Coreg at home, but has been bradycardic inpatient, discharged on amlodipine, follow up with Cardiology and new primary outpatient. History of neuropathy, recurrent headache and tremor- sees Neurology in [place], reports due for visit soon Tobaccoism- cessation encouraged Possible fibromuscular dysplasia- carotid arteries, suspected on CTA, discussed with patient and recommend follow up outpatient Hospital Course: See problem list Labs and Pending Lab Test: Laboratory Tests 05/19/22 05:02: White Blood Count 4.5, Red Blood Count 4.15, Hemoglobin 11.5, Hematocrit 37, Mean Corpuscular Volume 89, Mean Corpuscular Hemoglobin 28, Mean Corpuscular Hemoglobin Concent 31L, Red Cell Distribution Width 14.8H, Platelet Count 281, Mean Platelet Volume 9.8, Prothrombin Time 14.9H, INR Comment 1.1, Sodium Level 137, Potassium Level 4.2, Chloride Level 105, Carbon Dioxide Level 24, Anion Gap 8, Blood Urea Nitrogen 7, Creatinine 0.74, Estimat Glomerular Filtration Rate 99, BUN/Creatinine Ratio 9, Glucose Level 88, Calcium Level 8.5, Corrected Calcium 8.8, Total Bilirubin 0.2, Aspartate Amino Transf (AST/SGOT) 14, Alanine Aminotransferase (ALT/SGPT) 13, Alkaline Phosphatase 61, Total Protein 6.6, Alb umin 3.6 Home Meds Active Enoxaparin Sodium 120 Mg/0.8 Ml Syringe 120 Mg SQ DAILY Amlodipine Besylate 10 Mg Tablet 10 Mg PO DAILY Jantoven (Warfarin Sodium) 5 Mg Tablet 5 Mg PO DAILY@1800 Assessment/Pt DC Instructions Follow up with establish care appt tomorrow 05/20/22 as scheduled. Follow up with Dr. Virk as directed. Continue Lovenox and Coumadin until instructed to stop Lovenox by outpatient provider. Check INR daily. Activity as Tolerated: Yes Discharge Physical Examination Allergies: Coded Allergies: Penicillins (Verified Allergy, Unknown, 05/17/22) aspirin (Verified Allergy, Unknown, 05/17/22) diphenhydramine (Verified Allergy, Unknown, 05/17/22) morphine (Verified Allergy, Unknown, 05/17/22) tramadol (Verified Allergy, Unknown, 05/17/22) General Appearance: No Apparent Distress, WD/WN Respiratory: Lungs Clear, Normal Breath Sounds Cardiovascular: Regular Rate, Rhythm, Other (mechanical valve click) Gastrointestinal: Normal Bowel Sounds, Non Tender, Soft Skin: Normal Color, Warm/Dry Neurologic/Psychiatric: Alert, Normal Mood/Affect Clinical Quality Measures AMI/AHF: ASA po Prior to arrival: No (ALLERGIC) AUGUSTINA CUELLAR MD May 19, 2022 10:57
[2022-05-19 11:37] VITALS: BP 144/76
[2022-05-19] MEDS ORDERED: ENOX80DI7 SQ (12:46)
[2022-05-19 16:07] VITALS: BP 152/70
[2022-05-19 16:30] VITALS: BP 152/70
[2022-05-19] MEDS ORDERED: warFARin 5 MG (COUMADIN) TAB PO SCH (18:00)
[2022-05-20] MEDS ORDERED: amLODIPine 5 MG (NORVASC) TAB PO SCH (09:00)
[2022-05-20] MEDS ORDERED: amLODIPine 10 MG (NORVASC) TAB PO SCH (09:00)
== END 2022-05-19 16:30 | disposition home or self-care (01) ==
LOC: EDUNIT# 16:38 → ER 16:41 → ICU 20:36 → UNDOADMOB 20:36 → ICU 21:41 → 4TH 05-18 12:57 → ICU 05-18 12:57 → 4TH 05-19 13:20 → UNDODISOB 05-19 16:30
PROVIDERS: ADMIT Internal Medicine; ATTEND Family Medicine
DX: R07.9 Chest pain, unspecified (principal); I10 Essential (primary) hypertension; F17.210 Nicotine dependence, cigarettes, uncomplicated; G62.9 Polyneuropathy, unspecified; Z95.4 Presence of other heart-valve replacement; Z91.14 Patient's other noncompliance with medication regimen; Z28.310 Unvaccinated for COVID-19
CPT/HCPCS: 70450; 70496; 70498; 71045; 80053 ×3; 80061; 83735; 83874; 83880; 84484; 85025; 85027 ×2; 85610 ×2; 85730; 86141; 87636; 93005 ×2; 93041; 99284; C8929; 36415; 90471; 90686; 93306; 96372; G0378

== ENCOUNTER → 2022-05-20 | Outpatient (CLI) | payer MEDICARE, MEDICAID ==
[~2022-05-20] MED LIST: AMLO-251 PO; ENOX120D5 SQ; ENOX80DI7 SQ; WRF5T PO
[2022-05-20 18:08] LABS: INR 1.3 (0.8-1.4); PROTHROMBIN TIME PATIENT 16.7 SEC (12.2-14.7)
== END ==
LOC: LAB 17:30
PROVIDERS: ATTEND Family Medicine
DX: Z95.2 Presence of prosthetic heart valve (principal)
CPT/HCPCS: 85610

== ENCOUNTER 2022-12-28 23:34 | Observation (INO) | payer MEDICARE, MEDICAID ==
[~2022-12-28] VITALS: Ht 163 cm; Wt 69.1 kg
[2022-12-28 23:46] LABS: BASOPHILS % (AUTO) 1 % (0-10); EOSINOPHILS # (AUTO) 0.2 10^3/uL (0.0-0.3); EOSINOPHILS % (AUTO) 3 % (0-10); HEMATOCRIT 32 % (35-52); HEMOGLOBIN 9.8 g/dL (11.5-16.0); LYMPHOCYTES # (AUTO) 1.5 10^3/uL (1.0-4.0); LYMPHOCYTES % (AUTO) 20 % (12-44); MEAN CORPUSCULAR HEMOGLOBIN 23 pg (25-34); MEAN CORPUSCULAR HGB CONC 31 g/dL (32-36); MEAN CORPUSCULAR VOLUME 75 fL (80-99); MEAN PLATELET VOLUME 9.5 fL (9.0-12.2); MONOCYTES # (AUTO) 0.5 10^3/uL (0.0-1.0); MONOCYTES % (AUTO) 7 % (0-12); NEUTROPHILS # (AUTO) 5.3 10^3/uL (1.8-7.8); NEUTROPHILS % (AUTO) 70 % (42-75); PLATELET COUNT 329 10^3/uL (130-400); WHITE BLOOD COUNT 7.6 10^3/uL (4.3-11.0)
[2022-12-28] MEDS: NITROGLYCERIN 0.4 MG SL TABLETS BTL 25'S SL PRN ×3 (23:46→23:58)
[2022-12-29] VITALS (7 sets, daily range): BP systolic 138–159; BP diastolic 58–76
[2022-12-29] MEDS ORDERED: ASPIRIN 81 MG CHEWABLE TABLET PO ONE
[2022-12-29] MEDS ORDERED: ENOXAPARIN 80 MG/0.8 ML SYRINGE SC ONE
--- NOTE | 2022-12-29 00:07 | ED Chest Pain ---
General Chief Complaint: Chest Pain Stated Complaint: CP Nursing Triage Note: BROUGHT IN BY [facility] FOR SUBSTERNAL CHEST PAIN X2 HRS. Source: patient (SOMEWHAT DIFFICULT HISTORIAN), old records History of Present Illness Date Seen by Provider: Dec 28, 2022 Time Seen by Provider: 23:35 Initial Comments PT ARRIVES VIA [facility] FROM HOME NO TREATMENT BY EMS C/O CHEST PAIN X 2 HOURS--BEGAN WHILE LAYING DOWN WATCHING TV PAIN IS IN CENTER OF CHEST AND RATES PAIN 7/10 NOTHING WORSENS OR IMPROVES PAIN DOES HAVE SOME PAIN TO RIGHT SIDE OF FACE AND RIGHT SIDE OF HEAD --STATES IT BEGAN ON ARRIVAL HERE C/O SHORTNESS OF BREATH C/O NAUSEA, NO VOMITING C/O SWEATS NO SWELLING IN LEGS/FEET SHE HAS HAD DIARRHEA FOR A COUPLE OF DAYS NO ABDOMINAL PAIN NO FEVER NO COUGH/URI SYMPTOMS PT HAS NOT TAKEN ANYTHING FOR PAIN SHE HAS HAD THIS SAME PAIN IN THE PAST--NO STENTS OR ANGIOPLASTY PT DOES HAVE A MECHANICAL HEART VALVE. SHE IS PRESCRIBED COUMADIN, BUT RAN OUT "A FEW DAYS AGO" , AND HAS NOT GONE TO THE PHARMACY TO FLOOR SURFACER PRESCRIPTION--"CAR IS BROKE DOWN" ( THERE ARE FAMILY M EMBERS WHO ARRIVED VIA POV FROM HOME TO SEE PT ) PT STATES SHE USED TO SEE A [facility] WITH [employer] IN [place], BUT HE LEFT AND SHE HAS NOT ATTEMPTED TO ESTABLISH WITH A NEW MANAGER DATA C[facility]. SHE CANNOT RECALL WHEN SHE LAST SAW A [facility]NAGER DATA [facility]. PT CONTINUES TO SMOKE 1 PPD, SHE SMOKES MARIJUANA ON A DAILY BASIS, AND "OCCASIONAL" ALCOHOL USE--SHE STATES SHE HAD "A COUPLE OF BEERS" TODAY SHE IS NOT COVID VACCINATED PCP: AMY-CYNDY, KEL LUGO Allergies and Home Medications Allergies Coded Allergies: Penicillins (Verified Allergy, Unknown, 05/17/22) aspirin (Verified Allergy, Unknown, 05/17/22) diphenhydramine (Verified Allergy, Unknown, 05/17/22) morphine (Verified Allergy, Unknown, 05/17/22) tramadol (Verified Allergy, Unknown, 05/17/22) Patient Home Medication List Home Medication List Reviewed: Yes Amlodipine Besylate (Amlodipine Besylate) 10 Mg Tablet, 10 MG PO DAILY Prescribed by: AUGUSTINA CUELLAR on 05/19/22 1052 Enoxaparin Sodium (Enoxaparin Sodium) 80 Mg/0.8 Ml Syringe, 80 MG SQ BID Prescribed by: AUGUSTINA CUELLAR on 05/19/22 1246 Warfarin Sodium (Jantoven) 5 Mg Tablet, 5 MG PO DAILY@1800 Prescribed by: AUGUSTINA CUELLAR on 05/19/22 1052 Review of Systems Review of Systems Constitutional: see HPI, diaphoresis; No fever; malaise, weakness EENTM: No Symptoms Reported Respiratory: See HPI, Shortness of Air Cardiovascular: See HPI, Chest Pain; Denies Edema, Denies Lightheadedness, Denies Palpitations, Denies Syncope Gastrointestinal: See HPI; Denies Abdominal Pain; Diarrhea, Nausea; Denies Vomiting Genitourinary: No Symptoms Reported Musculoskeletal: see HPI Skin: no symptoms reported Psychiatric/Neurological: See HPI Endocrine: No Symptoms Reported Hematologic/Lymphatic: No Symptoms Reported Past Axoumnv-Ujqhpm-Dkbzqz Hx Patient Social History Tobacco Use?: Yes Tobacco type used: Cigarettes Smoking Status: Current Everyday Smoker Substance use?: Yes Substance type: Marijuana Substance frequency: Daily Alcohol Use?: Yes Alcohol Frequency: Once in a while Pt feels they are or have been: No Immunizations Up To Date First/Initial COVID19 Vaccinat: DECLINED Second COVID19 Vaccination José Miguel: DECLINED Third COVID19 Vaccination Date: DECLINED Past Medical History Surgery/Hospitalization HX: MECHANICAL HEART VALVE REPLACEMENT, 3 C SECTIONS, GB, APPENDIX, CYST REMOVAL. 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, Menopausal Genitourinary: No Gastrointestinal: No Musculoskeletal: Yes (Cervical spinal stenosis and chronic neck pain) Endocrine: No HEENT: Yes (Strabismus of right eye) Cancer: No Psychosocial: Yes Anxiety, Depression Integumentary: No Blood Disorders: No Family Medical History No Pertinent Family Hx SOCIAL HISTORY: -SMOKES 1 PPD -ETOH--OCCASIONAL USE -DRUGS--SMOKES THC DAILY PAST SURGICAL HISTORY: -OVARIAN CYST REMOVED -CHOLECYSTECTOMY -APPENDECTOMY - X 3 -HYSTERECTOMY WITH BILATERAL SALPINGO-OOPHORECTOMY -MECHANICAL MITRAL VALVE -ECHOCARDIOGRAM DONE HERE 04/2022 SHOWS MECHANICAL MITRAL VALVE -Cardiac catheterization according to the patient was done in 2019 in [facility] and it was normal prior to having her valve replacement. Did not require any stenting. valve replacement, patient has a card of [employer] mechanical valve, surgery was done in [address] Foster in [facility] Semaj Physical Exam Vital Signs Vital Signs - First Documented 12/28/22 23:35 Temp 36.9 Pulse 81 Resp 16 B/P (MAP) 160/91 (114) Pulse Ox 98 O2 Delivery Room Air Capillary Refill : Less Than 3 Seconds Height, Weight, BMI Height: '" Weight: lbs. oz. kg; 26.00 BMI Method: General Appearance: No Apparent Distress, WD/WN, Other (REEKS OF CIGARETEES) HEENT: PERRL/EOMI (RIGHT STRABISMUS;), Other (EDENTULOUS) Neck: Full Range of Motion, Normal Inspection, Non Tender, Supple; No Carotid Bruit, No JVD Respiratory: Chest Non Tender, Normal Breath Sounds, No Accessory Muscle Use, No Respiratory Distress Cardiovascular: Regular Rate, Rhythm, No Edema, No JVD, Normal Peripheral Pulses, Other (2/6 MURMUR WITH MECHANICAL CLICK) Gastrointestinal: Normal Bowel Sounds, No Organomegaly, No Pulsatile Mass, Non Tender, Soft Extremity: Normal Capillary Refill, Normal Inspection, Normal Range of Motion, Non Tender, No Calf Tenderness, No Pedal Edema Neurologic/Psychiatric: Alert, Oriented x3, No Motor/Sensory Deficits, Normal Mood/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, 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 Skin: Normal Color, Warm/Dry, Tattoos/Piercings (TATTOOS) Progress/Results/Core Measures Results/Orders Lab Results Laboratory Tests Test 12/28/22 23:40 12/28/22 23:54 Range/Units White Blood Count 7.6 4.3-11.0 10^3/uL Red Blood Count 4.27 3.80-5.11 10^6/uL Hemoglobin 9.8 L 11.5-16.0 g/dL Hematocrit 32 L 35-52 % Mean Corpuscular Volume 75 L 80-99 fL Mean Corpuscular Hemoglobin 23 L 25-34 pg Mean Corpuscular Hemoglobin Concent 31 L 32-36 g/dL Red Cell Distribution Width 18.5 H 10.0-14.5 % Platelet Count 329 130-400 10^3/uL Mean Platelet Volume 9.5 9.0-12.2 fL Immature Granulocyte % (Auto) 0 % Neutrophils (%) (Auto) 70 42-75 % Lymphocytes (%) (Auto) 20 12-44 % Monocytes (%) (Auto) 7 0-12 % Eosinophils (%) (Auto) 3 0-10 % Basophils (%) (Auto) 1 0-10 % Neutrophils # (Auto) 5.3 1.8-7.8 10^3/uL Lymphocytes # (Auto) 1.5 1.0-4.0 10^3/uL Monocytes # (Auto) 0.5 0.0-1.0 10^3/uL Eosinophils # (Auto) 0.2 0.0-0.3 10^3/uL Basophils # (Auto) 0.0 0.0-0.1 10^3/uL Immature Granulocyte # (Auto) 0.0 0.0-0.1 10^3/uL Prothrombin Time 13.9 12.2-14.7 SEC INR Comment 1.1 0.8-1.4 Activated Partial Thromboplast Time 27 24-35 SEC D-Dimer 0.20 0.00-0.49 UG/ML Sodium Level 142 135-145 MMOL/L Potassium Level 3.3 L 3.6-5.0 MMOL/L Chloride Level 108 H 98-107 MMOL/L Carbon Dioxide Level 24 21-32 MMOL/L Anion Gap 10 5-14 MMOL/L Blood Urea Nitrogen 5 L 7-18 MG/DL Creatinine 0.84 0.60-1.30 MG/DL Estimat Glomerular Filtration Rate 85 BUN/Creatinine Ratio 6 Glucose Level 99 70-105 MG/DL Calcium Level 8.7 8.5-10.1 MG/DL Corrected Calcium 8.7 8.5-10.1 MG/DL Magnesium Level 2.1 1.6-2.4 MG/DL Total Bilirubin 0.4 0.1-1.0 MG/DL Aspartate Amino Transf (AST/SGOT) 15 5-34 U/L Alanine Aminotransferase (ALT/SGPT) 11 0-55 U/L Alkaline Phosphatase 64 40-136 U/L Total Creatine Kinase 49 29-168 U/L Creatine Kinase MB 0.7 <6.6 NG/ML Myoglobin 30.2 10.0-92.0 NG/ML Troponin I < 0.028 <0.028 NG/ML B-Type Natriuretic Peptide 162.1 H <100.0 PG/ML Total Protein 6.9 6.4-8.2 GM/DL Albumin 4.0 3.2-4.5 GM/DL Amylase Level 48 25-125 U/L Lipase 10 8-78 U/L Serum Test, Qualitative NEGATIVE NEGATIVE Serum Alcohol < 10 <10 MG/DL Influenza Type A (RT-PCR) Not Detected Not Detecte Influenza Type B (RT-PCR) Not Detected Not Detecte SARS-CoV-2 RNA (RT-PCR) Not Detected Not Detecte My Orders Orders - SHANTI BRADY DO Nitroglycerin 0.4 Mg Btl 25's (Nitroglyc (12/28/22 23:45) Chest 1 View, Ap/Pa Only (12/28/22:36) Ekg Tracing (12/28/22:) Cbc With Automated Diff (12/28/22:) Magnesium (12/28/22:) Comprehensive Metabolic Panel (12/28/22:) Myoglobin Serum (12/28/22:36) Protime With Inr (12/28/22:) Partial Thromboplastin Time (12/28/22:) O2 (12/28/22:) Monitor-Rhythm Ecg Trace Only (12/28/22:36) Ed Iv/Invasive Line Start (12/28/22:36) Creatine Kinase (12/28/22:) Creatine Kinase Mb (12/28/22:) Lipase (12/28/22:) Amylase (12/28/22:36) Bnp Wilkin (12/28/22:36) Fibrin Degradation Products (12/28/22:) Troponin I Esequiel (12/28/22:36) Hcg,Qualitative Serum (12/28/22:) Covid 19 Inhouse Test (12/28/22 23:36) Influenza A And B By Pcr (12/28/22 23:36) Aspirin Chewable Tablet (Aspirin Chewabl (12/29/22 00:00) Enoxaparin Injection (Enoxaparin Injecti (12/29/22 00:00) Alcohol (12/29/22 00:07) Drug Screen Stat (Urine) (12/29/22 00:07) Ondansetron Injection (Ondansetron Inj (12/29/22 00:30) Pantoprazole Injection (Pantoprazole Inj (12/29/22 00:30) Medications Given in ED Current Medications Medications Dose Ordered Sig/Cliff Route Start Time Stop Time Status Last Admin Dose Admin Aspirin 324 mg ONCE ONCE PO 12/29/22 00:00 12/29/22 00:01 DC 12/28/22 23:57 324 MG Enoxaparin Sodium 70 mg ONCE ONCE SC 12/29/22 00:00 12/29/22 00:01 DC 12/28/22 23:57 70 MG Nitroglycerin 0.4 mg UD PRN SL 12/28/22 23:45 12/28/22 23:58 DC 12/28/22 23:58 0.4 MG Ondansetron HCl 4 mg ONCE ONCE IVP 12/29/22 00:30 12/29/22 00:31 DC 12/29/22 00:30 4 MG Pantoprazole 40 mg ONCE ONCE IV 12/29/22 00:30 12/29/22 00:31 DC 12/29/22 00:30 40 MG Vital Signs/I&O 12/28/22 23:35 Temp 36.9 Pulse 81 Resp 16 B/P (MAP) 160/91 (114) Pulse Ox 98 O2 Delivery Room Air Blood Pressure Mean: 114 Progress Progress Note : Progress Note VITALS ON ARRIVAL: TEMP 36.9=98.4, HR 81, RR 16, BP 160/91, O2 SAT 98% ON ROOM AIR GIVEN: -ASPIRIN 324 MG--PT STATES SHE IS NOT ALLERGIC TO ASPIRIN, IT JUST CAUSES STO MACH UPSET. -NTG X 3--COMPLETE RELIEF OF PAIN -LOVENOX -ZOFRAN -PROTONIX LABS: -CBC WITH WBC 7.6, HGB 9.8, PLT 329,000 -CMP WITH K 3.3, OTHERWISE NORMAL -MG 2.1 -CK, CK-MB, MYOGLOBIN ALL NORMAL -TROPONIN NEGATIVE -BNP 162 -COAGULATION STUDIES--PT 13.9, PTT 27, INR 1.1 -D-DIMER NEGATIVE -AMYLASE/LIPASE NORMAL -HCG NEGATIVE -COVID/FLU NEGATIVE -ETOH NEGATIVE PT DID NOT GIVE URINE SPECIMEN IN ER EKG IS UNREMARKABLE CXR IS UNREMARKABLE, PENDING RADIOLOGIST REVIEW NO DETERIORATION IN PT'S CONDITION DURING ER STAY DISCUSSED TEST RESULTS AND NEED FOR ADMIT AND PT IS AGREEABLE TO PLAN REVIEWED PRIOR RECORDS--ONE ADMIT IN APRIL. Initial ECG Impression Date: Dec 28, 2022 Initial ECG Impression Time: 23:43 Initial ECG Rate: 78 Initial ECG Rhythm: Normal Sinus Initial ECG Intervals UT 126 QRS 91 QT/QTC 449/482 Initial ECG Impression: Nonspecific Changes Initial ECG Comparisson: Unchanged Comment INTEPRETED BY ME Diagnostic Imaging Comments CXR--NO ACUTE PROCESS, PENDING RADIOLOGIST REVIEW Reviewed: Reviewed by Me Departure Communication (Admissions) [id number]--SPOKE WITH DR. WHITE, [facility] RESIDENT. ACCEPTS PT FOR ADMIT. Impression Primary Impression: Chest pain Additional Impressions: Subtherapeutic anticoagulation Mechanical heart valve present Smoker Non-compliance Disposition: ADMITTED INPATIENT Condition: Improved Admissions Decision to Admit Reason: Admit from ER (General) Decision to Admit/Date: Dec 29, 2022 Time/Decision to Admit Time: 00:35 Departure-Patient Inst. Referrals: REYES AMAYA DO (PCP) Primary Care Physician [facility]/CYNDY (Family) Primary Care Physician SHANTI BRADY DO Dec 29, 2022 00:07
[2022-12-29 00:09] LABS: ALANINE AMINOTRANSFERASE 11 U/L (0-55); ALKALINE PHOSPHATASE 64 U/L (40-136); AMYLASE 48 U/L (25-125); BILIRUBIN,TOTAL 0.4 MG/DL (0.1-1.0); BUN/CREATININE RATIO 6; CALCIUM 8.7 MG/DL (8.5-10.1); CARBON DIOXIDE 24 MMOL/L (21-32); CHLORIDE 108 MMOL/L (98-107); CREATINE KINASE 49 U/L (29-168); CREATININE SERUM 0.84 MG/DL (0.60-1.30); GFR ESTIMATED 85; GLUCOSE 99 MG/DL (70-105); LIPASE 10 U/L (8-78); MAGNESIUM 2.1 MG/DL (1.6-2.4); POTASSIUM 3.3 MMOL/L (3.6-5.0); SODIUM 142 MMOL/L (135-145); TOTAL PROTEIN 6.9 GM/DL (6.4-8.2)
[2022-12-29 00:11] LABS: INR 1.1 (0.8-1.4); PROTHROMBIN TIME PATIENT 13.9 SEC (12.2-14.7)
[2022-12-29 00:13] LABS: FIBRIN DEGRADATION PRODUCTS 0.2 UG/ML (0.00-0.49)
[2022-12-29 00:16] LABS: CREATINE KINASE MB 0.7 NG/ML (<6.6)
[2022-12-29] MEDS ORDERED: ONDANSETRON INJECTION 4 MG/2 ML (SDV) IVP ONE (00:30)
[2022-12-29] MEDS ORDERED: PANTOPRAZOLE INJECTION 40 MG VIAL IV ONE (00:30)
[2022-12-29] MEDS ORDERED: CALCIUM CARBONATE 500 MG CHEW TABLET PO PRN (01:15)
[2022-12-29] MEDS ORDERED: PATIENT MAY USE OWN MEDS, ALL PO SCH (01:15)
[2022-12-29] MEDS ORDERED: MELATONIN 3 MG TABLET PO PRN (01:15)
[2022-12-29] MEDS ORDERED: ONDANSETRON 4 MG ORAL DISSOLVE TABLET PO PRN (01:15)
[2022-12-29] MEDS ORDERED: ONDANSETRON INJECTION 4 MG/2 ML (SDV) IV PRN (01:15)
[2022-12-29] MEDS: warFARin 5 MG (COUMADIN) TAB PO SCH ×2 (01:52→19:31)
[2022-12-29] MEDS ORDERED: NITROGLYCERIN 0.4 MG SL TABLETS BTL 25'S SL PRN (04:00)
[2022-12-29] MEDS ORDERED: fentaNYL INJECTION 100 MCG/2 ML VIAL IV PRN (04:00)
[2022-12-29 06:26] LABS: CHOLESTEROL 134 MG/DL (< 200); HDL CHOLESTEROL 33 MG/DL (40-60); TRIGLYCERIDES 110 MG/DL (<150); VLDL CHOLESTEROL 22 MG/DL (5-40)
[2022-12-29] MEDS: CATHETER FLUSH 10 ML SYR IVP SCH ×3 (06:26→22:46)
[2022-12-29] MEDS: SENNOSIDES 8.6 MG TABLET PO SCH ×2 (07:55→21:23)
[2022-12-29 08:39] LABS: AMPHETAMINE SCREEN, URINE NEGATIVE (NEGATIVE); BARBITURATE SCREEN URINE NEGATIVE (NEGATIVE); BENZODIAZEPINES SCREEN URINE NEGATIVE (NEGATIVE); CANNABINOID SCREEN, URINE POSITIVE (NEGATIVE); COCAINE SCREEN URINE NEGATIVE (NEGATIVE); METHADONE STAT NEGATIVE (NEGATIVE); OPIATE SCREEN URINE NEGATIVE (NEGATIVE); OXYCODONE STAT NEGATIVE (NEGATIVE); PROPOXYPHENE STAT NEGATIVE (NEGATIVE); TRICYCLIC ANTIDEPRESSANTS SCRE NEGATIVE (NEGATIVE)
[2022-12-29] MEDS: ACETAMINOPHEN 325 MG TABLET PO PRN (08:55)
[2022-12-29] MEDS: PANTOPRAZOLE INJECTION 40 MG VIAL IV SCH (08:55)
--- NOTE | 2022-12-29 08:58 | Diagnostic Imaging Report ---
EXAMINATION: Chest 1 view HISTORY: Chest pain. COMPARISON: 05/17/2022. FINDINGS: The lung volumes are normal. No focal consolidation is seen. No large pleural effusion or pneumothorax is seen. The cardiomediastinal silhouette is stable with prosthetic heart valve and sternotomy wires noted. No acute osseous abnormality is seen. IMPRESSION: 1. No acute pleuroparenchymal process. Dictated by: Dictated on workstation # [id number]
[2022-12-29] MEDS ORDERED: ASPIRIN enteric coated 81MG TABLET PO SCH (09:00)
--- NOTE | 2022-12-29 09:34 | Consultation-Cardiology ---
HPI-Cardiology Cardiology Consultation Date of Consultation 12/29/22 Date of Admission Time Seen by Provider: 09:31 Indication: Chest pain HPI 52-year-old lady with history of mitral valve replacement, nonobstructive disease by cardiac catheterization in 2019. Multiple admissions for chest pain. Was under stress yesterday and started to have chest pain described as dull achiness in the retrosternal area, came into the emergency room for evaluation. This morning she is feeling better, no active chest pain, cardiac enzymes were negative. Nonspecific T wave abnormality were noted. Home Medications & Allergies Allergies: Coded Allergies: Penicillins (Verified Allergy, Unknown, 05/17/22) aspirin (Verified Allergy, Unknown, 05/17/22) diphenhydramine (Verified Allergy, Unknown, 05/17/22) morphine (Verified Allergy, Unknown, 05/17/22) tramadol (Verified Allergy, Unknown, 05/17/22) Home Medication List Reviewed: Yes UUP-Tqlrzn-Qwhacj Hx Patient Social History Smoking Status: Current Everyday Smoker Alcohol Use?: Yes Substance type: Marijuana Past Medical History Discussed below Family Medical History Significant Family History: No Pertinent Family Hx Review of Systems-General Review of Systems Constitutional: see HPI; No fever EENTM: see HPI, no symptoms reported Respiratory: no symptoms reported, see HPI Cardiovascular: no symptoms reported, see HPI, chest pain; No edema, No Hx of Intervention, No palpitations, No syncope, No vascular heart diseas, No other Gastrointestinal: no symptoms reported, see HPI Genitourinary: no symptoms reported, see HPI Musculoskeletal: see HPI Skin: no symptoms reported Psychiatric/Neurological: See HPI Reviewed Test Results Reviewed Test Results Lab Laboratory Tests Test 12/28/22 23:40 12/28/22 23:54 12/29/22 05:48 12/29/22 08:18 Range/Units White Blood Count 7.6 4.3-11.0 10^3/uL Red Blood Count 4.27 3.80-5.11 10^6/uL Hemoglobin 9.8 L 11.5-16.0 g/dL Hematocrit 32 L 35-52 % Mean Corpuscular Volume 75 L 80-99 fL Mean Corpuscular Hemoglobin 23 L 25-34 pg Mean Corpuscular Hemoglobin Concent 31 L 32-36 g/dL Red Cell Distribution Width 18.5 H 10.0-14.5 % Platelet Count 329 130-400 10^3/uL Mean Platelet Volume 9.5 9.0-12.2 fL Immature Granulocyte % (Auto) 0 % Neutrophils (%) (Auto) 70 42-75 % Lymphocytes (%) (Auto) 20 12-44 % Monocytes (%) (Auto) 7 0-12 % Eosinophils (%) (Auto) 3 0-10 % Basophils (%) (Auto) 1 0-10 % Neutrophils # (Auto) 5.3 1.8-7.8 10^3/uL Lymphocytes # (Auto) 1.5 1.0-4.0 10^3/uL Monocytes # (Auto) 0.5 0.0-1.0 10^3/uL Eosinophils # (Auto) 0.2 0.0-0.3 10^3/uL Basophils # (Auto) 0.0 0.0-0.1 10^3/uL Immature Granulocyte # (Auto) 0.0 0.0-0.1 10^3/uL Prothrombin Time 13.9 12.2-14.7 SEC INR Comment 1.1 0.8-1.4 Activated Partial Thromboplast Time 27 24-35 SEC D-Dimer 0.20 0.00-0.49 UG/ML Sodium Level 142 135-145 MMOL/L Potassium Level 3.3 L 3.6-5.0 MMOL/L Chloride Level 108 H 98-107 MMOL/L Carbon Dioxide Level 24 21-32 MMOL/L Anion Gap 10 5-14 MMOL/L Blood Urea Nitrogen 5 L 7-18 MG/DL Creatinine 0.84 0.60-1.30 MG/DL Estimat Glomerular Filtration Rate 85 BUN/Creatinine Ratio 6 Glucose Level 99 70-105 MG/DL Calcium Level 8.7 8.5-10.1 MG/DL Corrected Calcium 8.7 8.5-10.1 MG/DL Magnesium Level 2.1 1.6-2.4 MG/DL Total Bilirubin 0.4 0.1-1.0 MG/DL Aspartate Amino Transf (AST/SGOT) 15 5-34 U/L Alanine Aminotransferase (ALT/SGPT) 11 0-55 U/L Alkaline Phosphatase 64 40-136 U/L Total Creatine Kinase 49 29-168 U/L Creatine Kinase MB 0.7 <6.6 NG/ML Myoglobin 30.2 10.0-92.0 NG/ML Troponin I < 0.028 < 0.028 <0.028 NG/ML B-Type Natriuretic Peptide 162.1 H <100.0 PG/ML Total Protein 6.9 6.4-8.2 GM/DL Albumin 4.0 3.2-4.5 GM/DL Amylase Level 48 25-125 U/L Lipase 10 8-78 U/L Serum Test, Qualitative NEGATIVE NEGATIVE Serum Alcohol < 10 <10 MG/DL Influenza Type A (RT-PCR) Not Detected Not Detecte Influenza Type B (RT-PCR) Not Detected Not Detecte SARS-CoV-2 RNA (RT-PCR) Not Detected Not Detecte Triglycerides Level 110 <150 MG/DL Cholesterol Level 134 < 200 MG/DL LDL Cholesterol Direct 95 1-129 MG/DL VLDL Cholesterol 22 5-40 MG/DL HDL Cholesterol 33 L 40-60 MG/DL Urine Opiates Screen NEGATIVE NEGATIVE Urine Oxycodone Screen NEGATIVE NEGATIVE Urine Methadone Screen NEGATIVE NEGATIVE Urine Propoxyphene Screen NEGATIVE NEGATIVE Urine Barbiturates Screen NEGATIVE NEGATIVE Ur Tricyclic Antidepressants Screen NEGATIVE NEGATIVE Urine Phencyclidine Screen NEGATIVE NEGATIVE Urine Amphetamines Screen NEGATIVE NEGATIVE Urine Methamphetamines Screen NEGATIVE NEGATIVE Urine Benzodiazepines Screen NEGATIVE NEGATIVE Urine Cocaine Screen NEGATIVE NEGATIVE Urine Cannabinoids Screen POSITIVE H NEGATIVE Physical Exam Physical Exam Vital Signs Vital Signs - First Documented 12/28/22 23:35 Temp 36.9 Pulse 81 Resp 16 B/P (MAP) 160/91 (114) Pulse Ox 98 O2 Delivery Room Air Capillary Refill : Less Than 3 Seconds Height, Weight, BMI Height: '" Weight: lbs. oz. kg; 25.70 BMI Method: General Appearance: No Apparent Distress, WD/WN, Other (REEKS OF CIGARETEES) HEENT: PERRL/EOMI (RIGHT STRABISMUS;), Other (EDENTULOUS) Neck: Full Range of Motion, Normal Inspection, Non Tender, Supple; No Carotid Bruit, No JVD Respiratory: Chest Non Tender, Normal Breath Sounds, No Accessory Muscle Use, No Respiratory Distress Cardiovascular: Regular Rate, Rhythm, No Edema, No JVD, Normal Peripheral Pulses, Other (2/6 MURMUR WITH MECHANICAL CLICK) Gastrointestinal: Normal Bowel Sounds, No Organomegaly, No Pulsatile Mass, Non Tender, Soft Extremity: Normal Capillary Refill, Normal Inspection, Normal Range of Motion, Non Tender, No Calf Tenderness, No Pedal Edema Neurologic/Psychiatric: Alert, Oriented x3, No Motor/Sensory Deficits, Normal Mood/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 Did not require any stenting. Twelve-lead EKG showing sinus bradycardia with T wave inversion in the anterolateral leads. Borderline QTc prolongation. No acute ischemic changes. Recommend continuing to monitor and follow-up as an outpatient Mitral valve replacement, patient has a card of [employer] mechanical valve, surgery was done [place] [address] Foster in [facility] of noncompliant with medication. Educated about the importance of taking her Coumadin, monitor INR 2D echo was done on May 18, 2022 with normal LV size, EF 60 to 65%, prosthetic valve in the mitral position, functioning normally. Moderate tricuspid regurgitation, PA 30 to 35 mmHg Hypertension, restart home medication monitor blood pressure History of neuropathy, recurrent headache and tremor, herniated disc. Has been following with a neurologist, maintained on gabapentin Tobaccoism, educated on smoking cessation Noncompliant with medication, educated about the importance with compliance and educated about calling her primary physician to have a refill on her Coumadin instead of waiting for an appointment with a new doctor Okay for discharge from cardiology standpoint if she can continue on Coumadin and Lovenox bridge, monitor daily INR Clinical Quality Measures AMI/AHF: ASA po Prior to arrival: ROSA Delcid MD Dec 29, 2022 09:34
[2022-12-29 09:41] LABS: HEMATOCRIT 30 % (35-52); HEMOGLOBIN 9.2 g/dL (11.5-16.0); MEAN CORPUSCULAR HEMOGLOBIN 23 pg (25-34); MEAN CORPUSCULAR HGB CONC 31 g/dL (32-36); MEAN CORPUSCULAR VOLUME 76 fL (80-99); MEAN PLATELET VOLUME 9.7 fL (9.0-12.2); PLATELET COUNT 282 10^3/uL (130-400); WHITE BLOOD COUNT 6.6 10^3/uL (4.3-11.0)
[2022-12-29 10:10] LABS: ALBUMIN 3.7 GM/DL (3.2-4.5); BILIRUBIN,TOTAL 0.4 MG/DL (0.1-1.0); CALCIUM 8.4 MG/DL (8.5-10.1); CREATININE SERUM 0.79 MG/DL (0.60-1.30); POTASSIUM 3.2 MMOL/L (3.6-5.0); TOTAL PROTEIN 6.2 GM/DL (6.4-8.2)
[2022-12-29] MEDS ORDERED: AMLO-251 PO (10:46)
[2022-12-29] MEDS ORDERED: MELA5TAB14 PO (10:46)
[2022-12-29] MEDS ORDERED: WARF-48 PO (10:46)
[2022-12-29] MEDS ORDERED: ACET-2267 PO (10:46)
[2022-12-29] MEDS: ENOXAPARIN 80 MG/0.8 ML SYRINGE SC SCH ×2 (11:28→23:37)
[2022-12-29 13:39] LABS: INR 1.1 (0.8-1.4); PROTHROMBIN TIME PATIENT 14.5 SEC (12.2-14.7)
[2022-12-29 14:17] LABS: CLARITY,URINE CLEAR; COLOR,URINE YELLOW; GLUCOSE, URINE (UA) NEGATIVE (NEGATIVE); PH,URINE 5.5 (5-9); PROTEIN,URINE 2+ (NEGATIVE)
[2022-12-29 14:18] LABS: BILIRUBIN,URINE 1+ (NEGATIVE); KETONES,URINE NEGATIVE (NEGATIVE); NITRITE,URINE NEGATIVE (NEGATIVE)
[2022-12-29 14:19] LABS: BACTERIA,URINE FEW /HPF; LEUKOCYTE ESTERASE ,URINE NEGATIVE (NEGATIVE); SQUAMOUS EPITHELIAL CELL,UR 25-50 /HPF; WBC,URINE 0-2 /HPF
--- NOTE | 2022-12-29 15:40 | History & Physical ---
CHELSEA MARTÍNEZ 12/29/22 1540: HPI History of Present Illness: Patient presented to ED due to chest pain that started on the evening of 12/28. She described the pain at being in the center of her chest with radiation to the right side of the face and head. She said she was watching TV when the chest pain started. She said she has experienced pain like this in the past, before her mechanical mitral valve heart surgery in 2019. This is the first time since her heart surgery that she has experienced pain like this. She states she ran out of coumadin a few days ago, so she has not taken it for the last few days. She says this was due to transportation issues and she could not make it to the pharmacy to pick it up. Endorsed soa, nausea, and sweats during her episode of chest pain. Endorses headache and diarrhea that has been going on for a couple o f days. Brief ED Course: Patient had CBC that demonstrated microcytic anemia with hemoglobin level of 9.8 and MCV of 75. She was hypokalemic at 3.3. Troponin and d-dimer were within normal limits. EKG showed nonspecific T-wave abnormality. Negative flu and COVID tests. Normal amylase and lipase levels. CXR showed no acute pleuroparenchymal process. BNP was elevated at 162.1. 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 Patients Allergies have been reviewed. Allergies Coded Allergies: Penicillins (Verified Allergy, Unknown, 05/17/22) aspirin (Verified Allergy, Unknown, 05/17/22) diphenhydramine (Verified Allergy, Unknown, 05/17/22) morphine (Verified Allergy, Unknown, 05/17/22) tramadol (Verified Allergy, Unknown, 05/17/22) [id number]-[id number]-[id number] Hx Patient Social History Smoking Status: Current Everyday Smoker Alcohol Use?: Yes Substance type: Marijuana Tobacco type used: Cigarettes Immunizations Up To Date First/Initial COVID19 Vaccinat: DECLINED Second COVID19 Vaccination José Miguel: DECLINED Third COVID19 Vaccination Date: DECLINED Past Medical History HTN, HLD Migraines Asthmas Cervical-spine stenosis Depression/Anxiety Family Medical History Significant Family History: No Pertinent Family Hx Other Significan Family Hx: SOCIAL HISTORY: -SMOKES 1 PPD -ETOH--OCCASIONAL USE -DRUGS--SMOKES THC DAILY PAST SURGICAL HISTORY: -OVARIAN CYST REMOVED -CHOLECYSTECTOMY -APPENDECTOMY - X 3 -HYSTERECTOMY WITH BILATERAL SALPINGO-OOPHORECTOMY -MECHANICAL MITRAL VALVE -ECHOCARDIOGRAM DONE HERE 04/2022 SHOWS MECHANICAL MITRAL VALVE -Cardiac catheterization according to the patient was done in 2019 in [facility] and it was normal prior to having her valve replacement. Did not require any stenting. valve replacement, patient has a card of [employer] mechanical valve, surgery was done in [address] Foster in [facility] [place] Review of Systems ([facility]) Constitutional: see HPI EENTM: no symptoms reported Respiratory: see HPI Cardiovascular: see HPI Gastrointestinal: no symptoms reported Genitourinary: no symptoms reported : No Musculoskeletal: no symptoms reported Skin: no symptoms reported Psychiatric/Neurological: No Symptoms Reported Reviewed Test Results Reviewed Test Results Lab Laboratory Tests 12/28/22 23:40: White Blood Count 7.6, Red Blood Count 4.27, Hemoglobin 9.8L, Hematocrit 32L, Mean Corpuscular Volume 75L, Mean Corpuscular Hemoglobin 23L, Mean Corpuscular Hemoglobin Concent 31L, Red Cell Distribution Width 18.5H, Platelet Count 329, Mean Platelet Volume 9.5, Immature Granulocyte % (Auto) 0, Neutrophils (%) (Auto) 70, Lymphocytes (%) (Auto) 20, Monocytes (%) (Auto) 7, Eosinophils (%) (Auto) 3, Basophils (%) (Auto) 1, Neutrophils # (Auto) 5.3, Lymphocytes # (Auto) 1.5, Monocytes # (Auto) 0.5, Eosinophils # (Auto) 0.2, Basophils # (Auto) 0.0, Immature Granulocyte # (Auto) 0.0, Prothrombin Time 13.9, INR Comment 1.1, Activated Partial Thromboplast Time 27, D-Dimer 0.20, Sodium Level 142, Potassium Level 3.3L, Chloride Level 108H, Carbon Dioxide Level 24, Anion Gap 10, Blood Urea Nitrogen 5L, Creatinine 0.84, Estimat Glomerular Filtration Rate 85, BUN/Creatinine Ratio 6, Glucose Level 99, Calcium Level 8.7, Corrected Calcium 8.7, Magnesium Level 2.1, Total Bilirubin 0.4, Aspartate Amino Transf (AST/SGOT) 15, Alanine Aminotransferase (ALT/SGPT) 11, Alkaline Phosphatase 64, Total Creatine Kinase 49, Creatine Kinase MB 0.7, Myoglobin 30.2, Troponin I < 0.028, B-Type Natriuretic Peptide 162.1H, Total Protein 6.9, Albumin 4.0, Amylase Level 48, Lipase 10, Serum Test, Qualitative NEGATIVE, Serum Alcohol < 10 12/28/22 23:54: Influenza Type A (RT-PCR) Not Detected, Influenza Type B (RT-PCR) Not Detected, SARS-CoV-2 RNA (RT-PCR) Not Detected 12/29/22 05:48: Troponin I < 0.028, Triglycerides Level 110, Cholesterol Level 134, LDL Cholesterol Direct 95, VLDL Cholesterol 22, HDL Cholesterol 33L 12/29/22 08:18: Urine Color YELLOW, Urine Clarity CLEAR, Urine pH 5.5, Urine Specific Cobb >=1.030, Urine Protein 2+H, Urine Glucose (UA) NEGATIVE, Urine Ketones NEGATIVE, Urine Nitrite NEGATIVE, Urine Bilirubin 1+H, Urine Urobilinogen 0.2, Urine Leukocyte Esterase NEGATIVE, Urine RBC (Auto) 2+H, Urine RBC 5-10H, Urine WBC 0- 2, Urine Squamous Epithelial Cells 25-50H, Urine Crystals NONE, Urine Bacteria FEWH, Urine Casts NONE, Urine Mucus LARGEH, Urine Culture Indicated NO, Urine Opiates Screen NEGATIVE, Urine Oxycodone Screen NEGATIVE, Urine Methadone Screen NEGATIVE, Urine Propoxyphene Screen NEGATIVE, Urine Barbiturates Screen NEGATIVE, Ur Tricyclic Antidepressants Screen NEGATIVE, Urine Phencyclidine Screen NEGATIVE, Urine Amphetamines Screen NEGATIVE, Urine Methamphetamines Screen NEGATIVE, Urine Benzodiazepines Screen NEGATIVE, Urine Cocaine Screen NEGATIVE, Urine Cannabinoids Screen POSITIVEH 12/29/22 09:35: Prothrombin Time 14.5, INR Comment 1.1 12/29/22 09:37: White Blood Count 6.6, Red Blood Count 3.98, Hemoglobin 9.2L, Hematocrit 30L, Mean Corpuscular Volume 76L, Mean Corpuscular Hemoglobin 23L, Mean Corpuscular Hemoglobin Concent 31L, Red Cell Distribution Width 18.6H, Platelet Count 282, Mean Platelet Volume 9.7, Sodium Level 140, Potassium Level 3.2L, Chloride Level 109H, Carbon Dioxide Level 25, Anion Gap 6, Blood Urea Nitrogen 6L, Creatinine 0.79, Estimat Glomerular Filtration Rate 91, BUN/Creatinine Ratio 8, Glucose Level 92, Calcium Level 8.4L, Corrected Calcium 8.6, Total Bilirubin 0.4, Aspartate Amino Transf (AST/SGOT) 12, Alanine Aminotransferase (ALT/SGPT) 9, Alkaline Phosphatase 60, Total Protein 6.2L, Albumin 3.7 Radiology Chest XRay: No acute pleuroparenchymal process. Physical Exam-([facility]) Physical Exam Vital Signs VS - Last 72 Hours, by Label 12/28/22 12/29/22 12/29/22 12/29/22 23:35 01:44 01:49 02:00 Temp 36.9 36.5 36.3 Pulse 81 57 58 58 Resp 16 16 18 B/P (MAP) 160/91 (114) 144/79 147/67 (93) Pulse Ox 98 96 96 O2 Delivery Room Air Room Air Room Air 12/29/22 12/29/22 12/29/22 12/29/22 02:21 04:10 07:18 07:45 Temp 36.3 Pulse 62 59 Resp 18 B/P (MAP) 138/66 (90) Pulse Ox 96 93 O2 Delivery Room Air Room Air Room Air 12/29/22 12/29/22 12/29/22 12/29/22 08:05 11:45 12:33 15:57 Temp 36.5 36.3 36.5 Pulse 58 57 60 63 Resp 18 14 22 B/P (MAP) 140/69 (92) 153/72 (99) 151/76 (101) Pulse Ox 95 94 95 O2 Delivery Room Air Room Air 12/29/22 15:58 O2 Delivery Room Air Capillary Refill : Less Than 3 Seconds Respiratory: lungs clear, normal breath sounds, no respiratory distress, no accessory muscle use Cardiovascular: regular rate, rhythm, no edema, other (Clicking due to prosthetic heart valve) Gastrointestinal: normal bowel sounds, non tender, soft, no organomegaly, no pulsatile mass Extremities: normal range of motion, non-tender, normal inspection, no pedal edema, normal capillary refill Skin: normal color, warm/dry Assessment/Plan Assessment/Plan Admission Status: Observation (1) Chest pain Status: Acute Assessment & Plan: - Troponin of .028 and D-dimer of .2. - BNP elevated at 162.1 - Normal amylase and lipase - Chest Xray: No acute pleuroparenchymal process - Cardiac catheterization according to the patient was done in 2019 in [facility] and it was normal prior to having her aortic valve replacement. Did not require any stenting. - Twelve-lead EKG showing sinus bradycardia with T wave inversion in the anterolateral leads. Borderline QTc prolongation. - No acute ischemic changes. - 2D echo was done on May 18, 2022 with normal LV size, EF 60 to 65%, prosthetic valve in the mitral position, functioning normally. Moderate tricuspid regurgitation, PA 30 to 35 mmHg - Cardiology recommends continuing to monitor and follow-up as an outpatient Qualifiers: Qualified Codes: R07.89 - Other chest pain (2) Subtherapeutic anticoagulation Status: Acute Assessment & Plan: - Patient has subtherapeutic anticoagulation due to transportation limitations leading to her unable to obtain her coumadin from the pharmacy. - Unable to discharge the patient at this time because she will not be able to do daily INR checks as an outpatient - We have restarted her coumadin and consulted perinatal social worker to plan outpatient management of her INR (3) Microcytic anemia Status: Acute Assessment & Plan: - Patient had hemoglobin of 9.2 upon admission with an MCV of 75. She had normal hemoglobin studies in clinic in May. Iron studies were also done at this time shwoing a ferritin of 8 and a normal TIBC. - Anemia could be secondary to MITCHELL vs anemia of chronic disease vs blood loss anemia - Order iron studies to differentiate MITCHELL. 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 Qualifiers: Qualified Codes: I10 - Essential (primary) hypertension Clinical Quality Measures AMI/AHF: ASA po Prior to arrival: AUGUSTINA Yang MD 12/29/22 9088: Home Medications Allergies Coded Allergies: Penicillins (Verified Allergy, Unknown, 05/17/22) aspirin (Verified Allergy, Unknown, 05/17/22) diphenhydramine (Verified Allergy, Unknown, 05/17/22) morphine (Verified Allergy, Unknown, 05/17/22) tramadol (Verified Allergy, Unknown, 05/17/22) Physical Exam-([facility]) Physical Exam General Appearance: no apparent distress Supervisory-Addendum Brief Supervisory Addendum I personally performed or re-performed the history, physical exam and treatment for the E/M. I discussed the case with the Medical Student, and concur with the Medical Student documentation of history, physical exam and treatment plan unless otherwise noted. CHELSEA MARTÍNEZ Dec 29, 2022 15:40 AUGUSTINA CUELLAR MD Dec 29, 2022 18:43
[2022-12-29] MEDS ORDERED: warFARin 5 MG (COUMADIN) TAB PO SCH (18:00)
[2022-12-30 03:52] VITALS: BP 168/76
[2022-12-30 05:09] LABS: BASOPHILS % (AUTO) 1 % (0-10); EOSINOPHILS # (AUTO) 0.4 10^3/uL (0.0-0.3); EOSINOPHILS % (AUTO) 6 % (0-10); HEMATOCRIT 31 % (35-52); HEMOGLOBIN 9.1 g/dL (11.5-16.0); LYMPHOCYTES # (AUTO) 1.6 10^3/uL (1.0-4.0); LYMPHOCYTES % (AUTO) 25 % (12-44); MEAN CORPUSCULAR HEMOGLOBIN 23 pg (25-34); MEAN CORPUSCULAR HGB CONC 30 g/dL (32-36); MEAN CORPUSCULAR VOLUME 76 fL (80-99); MEAN PLATELET VOLUME 10.4 fL (9.0-12.2); MONOCYTES # (AUTO) 0.4 10^3/uL (0.0-1.0); MONOCYTES % (AUTO) 7 % (0-12); NEUTROPHILS # (AUTO) 3.8 10^3/uL (1.8-7.8); NEUTROPHILS % (AUTO) 61 % (42-75); PLATELET COUNT 274 10^3/uL (130-400); WHITE BLOOD COUNT 6.3 10^3/uL (4.3-11.0)
[2022-12-30 05:19] LABS: INR 1.2 (0.8-1.4); PROTHROMBIN TIME PATIENT 14.9 SEC (12.2-14.7)
[2022-12-30 05:33] LABS: ALBUMIN 3.6 GM/DL (3.2-4.5); BILIRUBIN,TOTAL 0.3 MG/DL (0.1-1.0); CALCIUM 8.2 MG/DL (8.5-10.1); CREATININE SERUM 0.79 MG/DL (0.60-1.30); POTASSIUM 3.3 MMOL/L (3.6-5.0); TOTAL PROTEIN 6.1 GM/DL (6.4-8.2)
[2022-12-30] MEDS: CATHETER FLUSH 10 ML SYR IVP SCH ×3 (06:43→21:12)
[2022-12-30 08:00] VITALS: BP 163/69
[2022-12-30] MEDS: PANTOPRAZOLE INJECTION 40 MG VIAL IV SCH (08:06)
[2022-12-30] MEDS: SENNOSIDES 8.6 MG TABLET PO SCH ×2 (08:06→21:11)
[2022-12-30] MEDS: amLODIPine 5 MG TABLET PO SCH (08:06)
[2022-12-30] MEDS ORDERED: POTASSIUM CHLORIDE 20 MEQ TABLET PO NR (09:00)
[2022-12-30] MEDS ORDERED: PANTOPRAZOLE 40 MG TABLET PO SCH (09:00)
--- NOTE | 2022-12-30 10:12 | Cardiology Progress Note ---
Subjective Date Seen by Provider: Dec 30, 2022 Time Seen by Provider: 10:11 Subjective/Events-last exam Patient was seen at bedside, sitting comfortably, no new complain Objective-Cardiology Exam Last Set of Vital Signs Vital Signs I&O Intake and Output 12/30/22 00:00 Intake Total 1180 ml Output Total 700 ml Balance 480 ml Intake Oral 1180 ml Output Urine Total 700 ml # Voids 2 Daily Weight Change No General: Alert, Oriented X3, Cooperative HEENT: Atraumatic, PERRLA Neck: Supple, No JVD, No Thyromegaly Lungs: Clear to Auscultation, Normal Air Movement Heart: Regular Rate, Normal S1, Normal S2, Other (Metallic click) Abdomen: Normal Bowel Sounds, Soft, No Tenderness, No Hepatosplenomegaly, No Masses Extremities: No Clubbing, No Cyanosis, No Edema, Normal Pulses, No Tenderness/Swelling Skin: No Rashes, No Breakdown, No Significant Lesion Neuro: Normal Gait, Normal Speech, Strength at 5/5 X4 Ext, Normal Tone, Sensation Intact Psych/Mental Status: Mental Status NL, Mood NL Results Lab Laboratory Tests 12/30/22 04:30 A/P-Cardiology Admission Diagnosis Chest pain Coronary artery disease Mitral valve replacement Hypertension Assessment/Plan Chest pain nonspecific etiology, atypical in presentation Cardiac catheterization according to the patient was done in 2019 in [facility] and it was normal prior to having her aortic valve replacement. Did n ot require any stenting. Twelve-lead EKG showing sinus bradycardia with T wave inversion in the ante rolateral leads. Borderline QTc prolongation. No acute ischemic changes. Recommend continuing to monitor and follow-up as an outpatient Mitral valve replacement, patient has a card of [email or web address] mechanical valve, surgery was done in [address] Foster in [facility] of noncompliant with medication. Educated about the importance of taking her Coumadin, monitor INR 2D echo was done on May 18, 2022 with normal LV size, EF 60 to 65%, prosthetic valve in the mitral position, functioning normally. Moderate tricuspid regurgitation, PA 30 to 35 mmHg Hypertension, restart home medication monitor blood pressure History of neuropathy, recurrent headache and tremor, herniated disc. Has been following with a neurologist, maintained on gabapentin Tobaccoism, educated on smoking cessation Noncompliance with medication, educated about compliance ROSA MARTINEZ MD Dec 30, 2022 10:12
[2022-12-30] MEDS: ENOXAPARIN 80 MG/0.8 ML SYRINGE SC SCH ×2 (11:46→23:32)
[2022-12-30] MEDS: ACETAMINOPHEN 325 MG TABLET PO PRN (11:46)
[2022-12-30 12:43] VITALS: BP 161/87
--- NOTE | 2022-12-30 12:55 | Progress Note ---
CHELSEA MARTÍNEZ 12/30/22 1255: Subjective Date Seen by a Provider: Dec 30, 2022 Time Seen by a Provider: 10:30 Subjective/Events-last exam Patient was resting comfortably in bed this morning. She continues to deny chest pain and has no complaints regarding her medical condition. Regarding transpor tion difficulties, she has very little family of other social support. Her sister has a car but she is busy and can rarely find time to take Julienne to appointments. Julienne and her boyfriend have a truck, but it is currently broken down. They are trying to fix it. She said she wants to get transportation figured out so that she can get discharged from the hospital. Focused Exam Cardiovascular: Other Objective Exam Last Set of Vital Signs Vital Signs Date Time Temp Pulse Resp B/P (MAP) Pulse Ox O2 Delivery O2 Flow Rate FiO2 12/30/22 12:43 37.2 78 20 161/87 (111) 98 Room Air Capillary Refill : Less Than 3 Seconds I&O Intake and Output 12/30/22 00:00 Intake Total 1180 ml Output Total 700 ml Balance 480 ml Intake Oral 1180 ml Output Urine Total 700 ml # Voids 2 Daily Weight Change No General: Alert, Oriented X3, Cooperative, No Acute Distress HEENT: Atraumatic Lungs: Clear to Auscultation, Normal Air Movement Heart: Regular Rate, No Murmurs, Other (Mechanical valve click) Abdomen: Normal Bowel Sounds, Soft, No Tenderness, No Hepatosplenomegaly, No Masses Extremities: No Clubbing, No Cyanosis, No Edema, Normal Pulses, No Tenderness/Swelling Skin: No Rashes, No Breakdown, No Significant Lesion Psych/Mental Status: Mental Status NL, Mood NL Results Lab Laboratory Tests 12/30/22 04:30: White Blood Count 6.3, Red Blood Count 4.02, Hemoglobin 9.1L, Hematocrit 31L, Mean Corpuscular Volume 76L, Mean Corpuscular Hemoglobin 23L, Mean Corpuscular Hemoglobin Concent 30L, Red Cell Distribution Width 18.4H, Platelet Count 274, Mean Platelet Volume 10.4, Immature Granulocyte % (Auto) 0, Neutrophils (%) (Auto) 61, Lymphocytes (%) (Auto) 25, Monocytes (%) (Auto) 7, Eosinophils (%) (Auto) 6, Basophils (%) (Auto) 1, Neutrophils # (Auto) 3.8, Lymphocytes # (Auto) 1.6, Monocytes # (Auto) 0.4, Eosinophils # (Auto) 0.4H, Basophils # (Auto) 0.0, Immature Granulocyte # (Auto) 0.0, Prothrombin Time 14.9H, INR Comment 1.2, Sodium Level 138, Potassium Level 3.3L, Chloride Level 107, Carbon Dioxide Level 24, Anion Gap 7, Blood Urea Nitrogen 8, Creatinine 0.79, Estimat Glomerular Filtration Rate 91, BUN/Creatinine Ratio 10, Glucose Level 88, Calcium Level 8.2L, Corrected Calcium 8.5, Total Bilirubin 0.3, Aspartate Amino Transf (AST/SGOT) 12, Alanine Aminotransferase (ALT/SGPT) 8, Alkaline Phosphatase 58, Total Protein 6.1L, Albumin 3.6 Radiology Chest X-Ray: No acute pleuroparenchymal process. Clinical Quality Measures AMI/AHF: ASA po Prior to arrival: No AUGUSTINA CUELLAR MD 12/31/224: CHELSEA MARTÍNEZ Dec 30, 2022 12:55 AUGUSTINA CUELLAR MD Dec 31, 2022 19:24
--- NOTE | 2022-12-30 13:02 | Progress Note ---
CHELSEA MARTÍNEZ 12/30/22 1301: Subjective Subjective/Events-last exam Patient was resting comfortably in bed this morning. She continues to deny chest pain and has no complaints regarding her medical condition. Regarding transportation difficulties, she has very little family or other social support. Her sister has a car but she is busy and can rarely find time to take Julienne to appointments. Julienne and her boyfriend have a truck, but it is currently broken down. They are trying to fix it. She said she wants to get transportation figured out so that she can get discharged from the hospital. Patient endorses headache this morning. Objective Exam Last Set of Vital Signs Vital Signs Date Time Temp Pulse Resp B/P (MAP) Pulse Ox O2 Delivery O2 Flow Rate FiO2 12/30/22 12:43 37.2 78 20 161/87 (111) 98 Room Air Capillary Refill : Less Than 3 Seconds I&O Intake and Output 12/30/22 00:00 Intake Total 1180 ml Output Total 700 ml Balance 480 ml Intake Oral 1180 ml Output Urine Total 700 ml # Voids 2 Daily Weight Change No General: Alert, Oriented X3, Cooperative, No Acute Distress HEENT: Atraumatic Lungs: Clear to Auscultation, Normal Air Movement Heart: Regular Rate, No Murmurs, Other (Mechanical valve click) Abdomen: Normal Bowel Sounds, No Tenderness, No Hepatosplenomegaly, No Masses Extremities: No Clubbing, No Cyanosis, No Edema, Normal Pulses, No Tenderness/Swelling Skin: No Rashes, No Breakdown, No Significant Lesion Neuro: Normal Speech Psych/Mental Status: Mental Status NL, Mood NL Results/Procedures Lab Laboratory Tests 12/30/22 04:30: White Blood Count 6.3, Red Blood Count 4.02, Hemoglobin 9.1L, Hematocrit 31L, Mean Corpuscular Volume 76L, Mean Corpuscular Hemoglobin 23L, Mean Corpuscular Hemoglobin Concent 30L, Red Cell Distribution Width 18.4H, Platelet Count 274, Mean Platelet Volume 10.4, Immature Granulocyte % (Auto) 0, Neutrophils (%) (Auto) 61, Lymphocytes (%) (Auto) 25, Monocytes (%) (Auto) 7, Eosinophils (%) (Auto) 6, Basophils (%) (Auto) 1, Neutrophils # (Auto) 3.8, Lymphocytes # (Auto) 1.6, Monocytes # (Auto) 0.4, Eosinophils # (Auto) 0.4H, Basophils # (Auto) 0.0, Immature Granulocyte # (Auto) 0.0, Prothrombin Time 14.9H, INR Comment 1.2, Sodium Level 138, Potassium Level 3.3L, Chloride Level 107, Carbon Dioxide Level 24, Anion Gap 7, Blood Urea Nitrogen 8, Creatinine 0.79, Estimat Glomerular Filtration Rate 91, BUN/Creatinine Ratio 10, Glucose Level 88, Calcium Level 8.2L, Corrected Calcium 8.5, Total Bilirubin 0.3, Aspartate Amino Transf (AST/SGOT) 12, Alanine Aminotransferase (ALT/SGPT) 8, Alkaline Phosphatase 58, Total Protein 6.1L, Albumin 3.6 Radiology Chest XRay: No acute pleuroparenchymal process. Assessment/Plan Assessment/Plan Admission Status: Observation (1) Subtherapeutic anticoagulation Status: Acute Assessment & Plan: - Patient has subtherapeutic anticoagulation due to transportation limitations leading to her unable to obtain her coumadin from the pharmacy. - Unable to discharge the patient at this time because she will not be able to do daily INR checks as an outpatient - We have restarted her coumadin and bridging with lovenox - Continuing to work with community mental health social worker to figure out transportation - INR 1.1 on 12/29 and is 1.2 today (2) Hypertension Status: Chronic Assessment & Plan: - Patient continues to have elevated BP's on MANAGER APPLICATION amlodipine 5mg - Adding HCTZ 25mg to daily medications for better BP control Qualifiers: Qualified Codes: I10 - Essential (primary) hypertension (3) Microcytic anemia Status: Acute Assessment & Plan: - Patient had hemoglobin of 9.8 upon admission with an MCV of 75. Today hemoglobin was 9.1. This inpatient change is most likely due to hemodilution. She had normal hemoglobin studies in clinic in May. Iron studies were also done at this time showing a ferritin of 8 and a normal TIBC. - Anemia could be secondary to MITCHELL vs anemia of chronic disease vs blood loss anemia - Pending iron studies and FOBT to differentiate cause of anemia (4) Chest pain Status: Resolved Assessment & Plan: - Troponin of .028 and D-dimer of .2. - BNP elevated at 162.1 - Normal amylase and lipase - Chest Xray: No acute pleuroparenchymal process - Cardiac catheterization according to the patient was done in 2019 in [facility] and it was normal prior to having her aortic valve replacement. Did not require any stenting. - Twelve-lead EKG showing sinus bradycardia with T wave inversion in the anterolateral leads. Borderline QTc prolongation. - No acute ischemic changes. - 2D echo was done on May 18, 2022 with normal LV size, EF 60 to 65%, prosthetic valve in the mitral position, functioning normally. Moderate tricuspid regurgitation, PA 30 to 35 mmHg - Cardiology recommends continuing to monitor and follow-up as an outpatient Qualifiers: Qualified Codes: R07.89 - Other chest pain Clinical Quality Measures AMI/AHF: ASA po Prior to arrival: AUGUSTINA Yang MD 12/30/22 [id number]: Supervisory-Addendum Brief Supervisory Addendum I personally performed or re-performed the history, physical exam and treatment for the E/M. I discussed the case with the Medical Student, and concur with the Medical Student documentation of history, physical exam and treatment plan unless otherwise noted. CHELSEA MARTÍNEZ Dec 30, 2022 13:01 AUGUSTINA CUELLAR MD Dec 30, 2022 18:58
[2022-12-30 14:00] LABS: INR 1.2 (0.8-1.4); PROTHROMBIN TIME PATIENT 15.2 SEC (12.2-14.7)
[2022-12-30] MEDS ORDERED: IBUPROFEN 600 MG TABLET PO PRN (14:30)
[2022-12-30] MEDS ORDERED: ENOX60DI7 SQ (15:00)
[2022-12-30] MEDS ORDERED: LOSA25TA41 PO (15:00)
[2022-12-30] MEDS ORDERED: WARF-48 PO (15:00)
[2022-12-30] MEDS ORDERED: AMLO-250 PO ×2 (15:00)
[2022-12-30 15:07] VITALS: BP 151/63
[2022-12-30] MEDS: warFARin 5 MG (COUMADIN) TAB PO SCH (17:20)
[2022-12-30] MEDS ORDERED: oxyCODONE IMMEDIATE RELEASE 5 MG TABLET PO NR (17:45)
--- NOTE | 2022-12-30 18:14 | Diagnostic Imaging Report ---
PROCEDURE: CT head without contrast. TECHNIQUE: Multiple contiguous axial images were obtained through the brain without the use of intravenous contrast. Auto Exposure Controls were utilized during the CT exam to meet ALARA standards for radiation dose reduction. INDICATION: Intractable headache with visual changes and hypertension. Comparison is made with prior head CT from 05/17/2022. FINDINGS: Ventricular size is stable. A small area of low attenuation in the high right parietal lobe is unchanged. There is no sulcal effacement or midline shift. No acute intra-axial or extra-axial hemorrhage is detected. Cisterns are patent. Visualized paranasal sinuses are clear apart from small mucus retention cyst or polyp in the right maxillary sinus. IMPRESSION: No acute intracranial process is detected. Dictated by: Dictated on workstation # [id number]
[2022-12-30 20:02] VITALS: BP 163/81
[2022-12-30 23:34] VITALS: BP 168/68
[2022-12-31] MEDS: ACETAMINOPHEN 325 MG TABLET PO PRN (03:34)
[2022-12-31 04:18] VITALS: BP 149/64
[2022-12-31 04:59] LABS: BASOPHILS % (AUTO) 0 % (0-10); EOSINOPHILS # (AUTO) 0.4 10^3/uL (0.0-0.3); EOSINOPHILS % (AUTO) 7 % (0-10); HEMATOCRIT 30 % (35-52); HEMOGLOBIN 9.3 g/dL (11.5-16.0); LYMPHOCYTES % (AUTO) 37 % (12-44); MEAN CORPUSCULAR HEMOGLOBIN 23 pg (25-34); MEAN CORPUSCULAR HGB CONC 31 g/dL (32-36); MEAN CORPUSCULAR VOLUME 76 fL (80-99); MEAN PLATELET VOLUME 9.7 fL (9.0-12.2); MONOCYTES # (AUTO) 0.4 10^3/uL (0.0-1.0); MONOCYTES % (AUTO) 7 % (0-12); NEUTROPHILS # (AUTO) 2.6 10^3/uL (1.8-7.8); NEUTROPHILS % (AUTO) 49 % (42-75); PLATELET COUNT 284 10^3/uL (130-400); WHITE BLOOD COUNT 5.4 10^3/uL (4.3-11.0)
[2022-12-31 05:12] LABS: ALBUMIN 3.6 GM/DL (3.2-4.5); INR 1.3 (0.8-1.4); PROTHROMBIN TIME PATIENT 16.2 SEC (12.2-14.7)
[2022-12-31 05:13] LABS: POTASSIUM 3.8 MMOL/L (3.6-5.0)
[2022-12-31 05:14] LABS: CALCIUM 8.7 MG/DL (8.5-10.1)
[2022-12-31 05:15] LABS: TOTAL PROTEIN 6.5 GM/DL (6.4-8.2)
[2022-12-31 05:17] LABS: BILIRUBIN,TOTAL 0.3 MG/DL (0.1-1.0)
[2022-12-31 05:19] LABS: CREATININE SERUM 0.76 MG/DL (0.60-1.30)
[2022-12-31] MEDS ORDERED: warFARin 5 MG (COUMADIN) TAB PO NR (07:00)
[2022-12-31 07:41] VITALS: BP 153/80
[2022-12-31] MEDS: SENNOSIDES 8.6 MG TABLET PO SCH (08:24)
[2022-12-31] MEDS: amLODIPine 5 MG TABLET PO SCH (08:24)
[2022-12-31] MEDS: CATHETER FLUSH 10 ML SYR IVP SCH ×2 (08:24→14:13)
[2022-12-31] MEDS ORDERED: PANTOPRAZOLE 40 MG TABLET PO SCH (09:00)
--- NOTE | 2022-12-31 10:05 | Cardiology Progress Note ---
Subjective Date Seen by Provider: Dec 31, 2022 Time Seen by Provider: 10:04 Subjective/Events-last exam Patient was seen at bedside, laying down comfortably, denied any chest pain Objective-Cardiology Exam Last Set of Vital Signs Vital Signs 12/31/22 12/31/22 07:41 07:43 Temp 36.5 Pulse 53 Resp 20 B/P (MAP) 153/80 (104) Pulse Ox 94 O2 Delivery Room Air I&O Intake and Output 12/31/22 00:00 Intake Total 1200 ml Output Total 2100 ml Balance -900 ml Intake Oral 1200 ml Output Urine Total 2100 ml # Voids 1 General: Alert, Oriented X3, Cooperative, No Acute Distress HEENT: Atraumatic Neck: Supple, No JVD, No Thyromegaly Lungs: Clear to Auscultation, Normal Air Movement Heart: Regular Rate, No Murmurs, Other (Mechanical valve click) Abdomen: Normal Bowel Sounds, No Tenderness, No Hepatosplenomegaly, No Masses Extremities: No Clubbing, No Cyanosis, No Edema, Normal Pulses, No Tenderness/Swelling Skin: No Rashes, No Breakdown, No Significant Lesion Neuro: Normal Speech Psych/Mental Status: Mental Status NL, Mood NL Results Lab Laboratory Tests 12/31/22 04:40 Laboratory Tests Test 12/30/22 13:36 12/31/22 04:40 Range/Units Prothrombin Time 15.2 H 16.2 H 12.2-14.7 SEC INR Comment 1.2 1.3 0.8-1.4 White Blood Count 5.4 4.3-11.0 10^3/uL Red Blood Count 4.00 3.80-5.11 10^6/uL Hemoglobin 9.3 L 11.5-16.0 g/dL Hematocrit 30 L 35-52 % Mean Corpuscular Volume 76 L 80-99 fL Mean Corpuscular Hemoglobin 23 L 25-34 pg Mean Corpuscular Hemoglobin Concent 31 L 32-36 g/dL Red Cell Distribution Width 18.2 H 10.0-14.5 % Platelet Count 284 130-400 10^3/uL Mean Platelet Volume 9.7 9.0-12.2 fL Immature Granulocyte % (Auto) 0 % Neutrophils (%) (Auto) 49 42-75 % Lymphocytes (%) (Auto) 37 12-44 % Monocytes (%) (Auto) 7 0-12 % Eosinophils (%) (Auto) 7 0-10 % Basophils (%) (Auto) 0 0-10 % Neutrophils # (Auto) 2.6 1.8-7.8 10^3/uL Lymphocytes # (Auto) 2.0 1.0-4.0 10^3/uL Monocytes # (Auto) 0.4 0.0-1.0 10^3/uL Eosinophils # (Auto) 0.4 H 0.0-0.3 10^3/uL Basophils # (Auto) 0.0 0.0-0.1 10^3/uL Immature Granulocyte # (Auto) 0.0 0.0-0.1 10^3/uL Sodium Level 138 135-145 MMOL/L Potassium Level 3.8 3.6-5.0 MMOL/L Chloride Level 104 98-107 MMOL/L Carbon Dioxide Level 23 21-32 MMOL/L Anion Gap 11 5-14 MMOL/L Blood Urea Nitrogen 9 7-18 MG/DL Creatinine 0.76 0.60-1.30 MG/DL Estimat Glomerular Filtration Rate 95 BUN/Creatinine Ratio 12 Glucose Level 89 70-105 MG/DL Calcium Level 8.7 8.5-10.1 MG/DL Corrected Calcium 9.0 8.5-10.1 MG/DL Total Bilirubin 0.3 0.1-1.0 MG/DL Aspartate Amino Transf (AST/SGOT) 14 5-34 U/L Alanine Aminotransferase (ALT/SGPT) 9 0-55 U/L Alkaline Phosphatase 50 40-136 U/L Total Protein 6.5 6.4-8.2 GM/DL Albumin 3.6 3.2-4.5 GM/DL A/P-Cardiology Admission Diagnosis Chest pain Coronary artery disease Mitral valve replacement Hypertension Assessment/Plan Chest pain nonspecific etiology, atypical in presentation Cardiac catheterization according to the patient was done in 2019 in [facility] and it was normal prior to having her aortic valve replacement. Did not require any stenting. Twelve-lead EKG showing sinus bradycardia with T wave inversion in the anterolateral leads. Borderline QTc prolongation. No acute ischemic changes. Recommend continuing to monitor and follow-up as an outpatient Mitral valve replacement, patient has a card of [employer] mechanical valve, surgery was done in [address] Foster in [facility] of noncompliant with medication. Educated about the importance of taking her Coumadin, monitor INR I gave her additional 5 mg of Coumadin today for a total of 8 mg and we will monitor her INR 2D echo was done on May 18, 2022 with normal LV size, EF 60 to 65%, prosthetic valve in the mitral position, functioning normally. Moderate tricuspid regurgitation, PA 30 to 35 mmHg Hypertension, restart home medication monitor blood pressure History of neuropathy, recurrent headache and tremor, herniated disc. Has been following with a neurologist, maintained on gabapentin Tobaccoism, educated on smoking cessation Noncompliance with medication, educated about compliance ROSA MARTINEZ MD Dec 31, 2022 10:05
--- NOTE | 2022-12-31 10:51 | Discharge Summary ---
Discharge [facility] Reconcile Patient Problems Problems Reviewed?: Yes Discharge Medications New, Converted or Re-Newed RX: Transmitted to Pharmacy New Medications: Amlodipine Besylate (Amlodipine Besylate) 5 Mg Tablet 5 MG PO DAILY, #30 TAB 0 Refills Losartan Potassium (Losartan Potassium) 25 Mg Tablet 25 MG PO DAILY, #30 TAB 0 Refills Enoxaparin Sodium (Enoxaparin Sodium) 60 Mg/0.6 Ml Syringe 60 MG SQ BID, #14 EA 0 Refills Changed Medications: Amlodipine Besylate (Amlodipine Besylate) 5 Mg Tablet 5 MG PO DAILY, #30 TAB (Changed from: Amlodipine Besylate 10 Mg Tablet 10 Mg PO HS) Continued Medications: Acetaminophen (Tylenol Extra Strength) 500 Mg Tablet 1000 MG PO Q8H PRN for PAIN-MILD (1-4), TAB Melatonin (Melatonin) 5 Mg Tablet 5 MG PO HS PRN for SLEEP, TAB Warfarin Sodium (Warfarin Sodium) 5 Mg Tablet 5 MG PO HS, #30 TAB 0 Refills (This prescription has been renewed) LAST FILLED 07-24-2022 #90/90 DAY SUPPLY Patient Instructions Patient Instructions You have transportation set up for appointments this and Thursday for INR checks. Goal/Follow Up Appt: In 1-2 weeks for hospital follow up As scheduled for INR checks. Return to The Hospital For: New/worsening symptoms Activity & Diet Discharge Diet: Cardiac Diet Activity as Tolerated: Yes AUGUSTINA CUELLAR MD Dec 31, 2022 10:51
[2022-12-31 12:22] VITALS: BP 165/71
[2022-12-31] MEDS: ENOXAPARIN 80 MG/0.8 ML SYRINGE SC SCH (12:22)
[2022-12-31 13:26] LABS: INR 1.3 (0.8-1.4); PROTHROMBIN TIME PATIENT 16.1 SEC (12.2-14.7)
--- NOTE | 2022-12-31 14:02 | Discharge Summary ---
CHELSEA MARTÍNEZ 12/31/22 1402: Diagnosis/Chief Complaint Date of Admission Dec 29, 2022 at 00:58 Date of Discharge Admission Diagnosis Admission Diagnosis Chest pain Discharge Diagnosis Chest pain and subtherapeutic anticoagulation Problems/Diagnosis: (1) Subtherapeutic anticoagulation Assessment & Plan: - Patient has subtherapeutic anticoagulation due to transportation limitations leading to her unable to obtain her coumadin from the pharmacy. - Patient was unable to be discharged for a couple of days due to transportation issues in being able to attend daily INR checks - INR upon admission was 1.1 and discharge is 1.3 - Coumadin was restarted and we are bridging with enoxaparin - Transportation services have been scheduled to pick patient up and have her attend INR checks on and Thursday. She will not be getting checked over the weekend but will be getting checked again on 01/05. - Will discontinue enoxaparin when patient has therapeutic anticoagulation with her coumadin. Target INR of 2.5-3.5 Status: Acute (2) Hypertension Assessment & Plan: - Patient was having elevated blood pressures on [employer] amlodipine 5mg - Patient was discharged on [employer] amlodipine 5mg and started on losartan 25mg for BP control - Advised patient to follow-up on her HTN in the outpatient setting with her PCP Qualifiers: Qualified Codes: I10 - Essential (primary) hypertension Status: Chronic (3) Microcytic anemia Assessment & Plan: - Patient had hemoglobin of 9.8 upon admission with an MCV of 75. She had normal hemoglobin studies in clinic in May. Iron studies were also done at this time showing a ferritin of 8 and a normal TIBC. - Iron studies were obtained during her inpatient admission. Iron level of 17, TIBC 309, Transferrin % saturation 6, Ferritin 11. Consistent with iron deficiency anemia. - Patient has never had a colonoscopy but has had an EGD in the past. - Advised patient to follow-up on her MITCHELL in the outpatient setting with her PCP Status: Acute (4) Chest pain Assessment & Plan: - Troponin of .028 and D-dimer of .2. - BNP elevated at 162.1 - Normal amylase and lipase - Chest Xray: No acute pleuroparenchymal process - Cardiac catheterization according to the patient was done in 2019 in [facility] and it was normal prior to having her aortic valve replacement. Did not require any stenting. - Twelve-lead EKG showing sinus bradycardia with T wave inversion in the anterolateral leads. Borderline QTc prolongation. - No acute ischemic changes. - 2D echo was done on May 18, 2022 with normal LV size, EF 60 to 65%, prosthetic valve in the mitral position, functioning normally. Moderate tricuspid regurgitation, PA 30 to 35 mmHg - Cardiology recommends continuing to monitor and follow-up as an outpatient Qualifiers: Qualified Codes: R07.89 - Other chest pain Status: Resolved Resolution Date/Time: 12/30/22 @ 12:58 (5) Headache Assessment & Plan: - Patient had been complaining of lingering headache throughout her hospital stay - On 12/30 she was endorsing severe right-sided facial pain with blurry vision - Head CT was ordered and no acute intracranial process was detected - It was subsequently well controlled with oral pain medications - Advised patient to follow-up with her outpatient PCP if headache persists Qualifiers: Status: Acute Chief Complaint/HPI Chief Complaint/HPI Patient presented to ED due to chest pain that started on the evening of 12/28. She described the pain at being in the center of her chest with radiation to the right side of the face and head. She said she was watching TV when the chest pain started. She said she has experienced pain like this in the past, before her mechanical mitral valve heart surgery in 2019. This is the first time since her heart surgery that she has experienced pain like this. She states she ran out of coumadin a few days ago, so she has not taken it for the last few days. She says this was due to transportation issues and she could not make it to the pharmacy to pick it up. Endorsed soa, nausea, and sweats during her episode of chest pain. Endorses headache and diarrhea that has been going on for a couple of days. Brief ED Course: Patient had CBC that demonstrated microcytic anemia with hemoglobin level of 9.8 and MCV of 75. She was hypokalemic at 3.3. Troponin and d-dimer were within normal limits. EKG showed nonspecific T-wave abnormality. Negative flu and COVID tests. Normal amylase and lipase levels. CXR showed no acute pleuroparenchymal process. BNP was elevated at 162.1. Discharge Summary-Simple/Stand Consultations Discharge Physical Examination Allergies: Coded Allergies: Penicillins (Verified Allergy, Unknown, 05/17/22) aspirin (Verified Allergy, Unknown, 05/17/22) diphenhydramine (Verified Allergy, Unknown, 05/17/22) morphine (Verified Allergy, Unknown, 05/17/22) tramadol (Verified Allergy, Unknown, 05/17/22) Vitals & I&Os Vital Sign - Last 12Hours Date Time Temp Pulse Resp B/P (MAP) Pulse Ox O2 Delivery O2 Flow Rate FiO2 12/31/22 12:22 36.5 70 20 165/71 (102) 95 Room Air Intake and Output 12/31/22 00:00 Intake Total 1000 ml Output Total 2100 ml Balance -1100 ml General Appearance: Alert, Oriented X3 HEENT: Atraumatic, Other (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 Radiology Reviewed Chest XRay: No acute pleuroparenchymal process. CT Head: No acute intracranial process detected. Discharge Instructions to patient/family Please see electronic discharge instructions given to patient. Discharge Medications Reviewed and agree with Discharge Medication list on patient's Discharge Instruction sheet Clinical Quality Measures AMI/AHF: ASA po Prior to arrival: No AUGUSTINA CUELLAR MD 12/31/221924: Discharge Summary-Simple/Stand Discharge Physical Examination Allergies: Coded Allergies: Penicillins (Verified Allergy, Unknown, 05/17/22) aspirin (Verified Allergy, Unknown, 05/17/22) diphenhydramine (Verified Allergy, Unknown, 05/17/22) morphine (Verified Allergy, Unknown, 05/17/22) tramadol (Verified Allergy, Unknown, 05/17/22) Supervisory-Addendum Brief Supervisory Addendum I personally performed or re-performed the history, physical exam and treatment for the E/M. I discussed the case with the Medical Student, and concur with the Medical Student documentation of history, physical exam and treatment plan unless otherwise noted. CHELSEA MARTÍNEZ 13, 2023 14:02 AUGUSTINA CUELLAR MD Dec 31, 2022 19:25
[2022-12-31 15:32] VITALS: BP 179/63
== END 2022-12-31 17:08 | disposition home or self-care (01) ==
LOC: EDUNIT# 23:34 → ER 23:36 → CSD 12-29 00:58
PROVIDERS: ADMIT Internal Medicine; ATTEND Family Medicine
DX: R07.89 Other chest pain (principal); I10 Essential (primary) hypertension; D50.9 Iron deficiency anemia, unspecified; R51.9 Headache, unspecified; I25.10 Atherosclerotic heart disease of native coronary artery without angina pectoris; G62.9 Polyneuropathy, unspecified; R25.1 Tremor, unspecified; F17.210 Nicotine dependence, cigarettes, uncomplicated; Z79.899 Other long term (current) drug therapy; Z91.199 Patient's noncompliance with other medical treatment and regimen due to unspecified reason; Z20.822 Contact with and (suspected) exposure to COVID-19; Z95.4 Presence of other heart-valve replacement; Z28.310 Unvaccinated for COVID-19; Z79.01 Long term (current) use of anticoagulants
CPT/HCPCS: 70450; 71045; 80053 ×4; 80061; 80306; 81000; 82150; 82550; 82553; 82728; 83540; 83550; 83690; 83735; 83874; 83880; 84484 ×2; 84703; 85025 ×3; 85027; 85379; 85610 ×4; 85730; 87636; 93005 ×3; 93041; 99284; G0480; 36415; 80320; 96372; 96376

== ENCOUNTER 2023-01-19 17:59 | Emergency (ER) | payer MEDICARE, MEDICAID ==
[~2023-01-19] VITALS: Ht 162 cm; Wt 68.0 kg
[~2023-01-19 17:59] MED LIST changes: +ACET-2267 PO; +AMLO-250 PO; +ENOX60DI7 SQ; +LOSA25TA41 PO; +MELA5TAB14 PO; +WARF-48 PO
[2023-01-19] MEDS ORDERED: OXYMETAZOLINE 0.05% NASAL SPRAY 30 ML BTL STA (18:11)
--- NOTE | 2023-01-19 18:15 | ED EENT ---
History of Present Illness General Chief Complaint: Nasal Problems Stated Complaint: COUGHING UP BLOOD, NOSE BLEEDING Source: patient Exam Limitations: no limitations (JUNIOR ENRIQUEZ) History of Present Illness Date Seen by Provider: Jan 19, 2023 Time Seen by Provider: 18:12 Initial Comments Patient is a 52-year-old female presents ED with left nosebleed. This started around 4 PM. Denies of any specific injury. She states she started having left naris bleeding. Started having bleeding into the back part of the throat. She clamped her nose and seemed to improve but then she was feeling large clots coming into her mouth which seem to make it worse when she removed the clot. She is currently on warfarin secondary to mechanical heart valve. History of hypertension. She denies of any recent runny nose, cough, headache, headache, dizziness, dizziness, visual changes. She does report coughing up the blood (JUNIOR ENRIQUEZ) Allergies and Home Medications Allergies Coded Allergies: Penicillins (Verified Allergy, Unknown, 05/17/22) aspirin (Verified Allergy, Unknown, 05/17/22) diphenhydramine (Verified Allergy, Unknown, 05/17/22) morphine (Verified Allergy, Unknown, 05/17/22) tramadol (Verified Allergy, Unknown, 05/17/22) Patient Home Medication List Home Medication List Reviewed: Yes (JUNIOR ENRIQUEZ) Acetaminophen (Tylenol Extra Strength) 500 Mg Tablet, 1,000 MG PO Q8H PRN for PAIN-MILD (1-4), (Reported) Entered as Reported by: KARLEE SENA on 12/29/22 1046 Amlodipine Besylate (Amlodipine Besylate) 5 Mg Tablet, 5 MG PO DAILY Prescribed by: AUGUSTINA CUELLAR on 12/30/22 1500 Amlodipine Besylate (Amlodipine Besylate) 5 Mg Tablet, 5 MG PO DAILY Prescribed by: AUGUSTINA CUELLAR on 12/30/22 1500 Enoxaparin Sodium (Enoxaparin Sodium) 60 Mg/0.6 Ml Syringe, 60 MG SQ BID Prescribed by: AUGUSTINA CUELLAR on 12/30/22 1500 Losartan Potassium (Losartan Potassium) 25 Mg Tablet, 25 MG PO DAILY Prescribed by: AUGUSTINA CUELLAR on 12/30/22 1500 Melatonin (Melatonin) 5 Mg Tablet, 5 MG PO HS PRN for SLEEP, (Reported) Entered as Reported by: KARLEE SENA on 12/29/22 1046 Warfarin Sodium (Warfarin Sodium) 5 Mg Tablet, 5 MG PO HS Prescribed by: AUGUSTINA CUELLAR on 12/30/22 1500 Review of Systems Review of Systems Constitutional: No chills, No diaphoresis, No malaise, No weakness Eyes: Denies Blurred Vision, Denies Drainage, Denies Decreased Acuity Ears: Denies Dizziness, Denies Pain Nose: epistaxis Mouth: clots; denies loose teeth Throat: denies pain, denies swelling Respiratory: No cough, No dyspnea on exertion Gastrointestinal: No abdominal pain, No diarrhea, No nausea Musculoskeletal: No back pain, No joint pain Skin: No change in color, No change in hair/nails Neurological: Denies Anxiety, Denies Depressed (JUNIOR ENRIQUEZ) All Other Systems Reviewed Negative Unless Noted: Yes (JUNIOR ENRQIUEZ) Past Obzewpb-Ksdeik-Nwncfo Hx Immunizations Up To Date First/Initial COVID19 Vaccinat: DECLINED Second COVID19 Vaccination José Miguel: DECLINED Third COVID19 Vaccination Date: DECLINED (JUNIOR ENRIQUEZ) Past Medical History Surgery/Hospitalization HX: MECHANICAL HEART VALVE REPLACEMENT, 3 C SECTIONS, GB, APPENDIX, CYST REMOVAL. 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 History: Hysterectomy, Menopausal Genitourinary: No Gastrointestinal: No Musculoskeletal: Yes (Cervical spinal stenosis and chronic neck pain) Endocrine: No HEENT: Yes (Strabismus of right eye) Cancer: No Psychosocial: Yes Anxiety, Depression Integumentary: No Blood Disorders: No (JUNIOR ENRIQUEZ) Family Medical History No Pertinent Family Hx SOCIAL HISTORY: -SMOKES 1 PPD -ETOH--OCCASIONAL USE -DRUGS--SMOKES THC DAILY PAST SURGICAL HISTORY: -OVARIAN CYST REMOVED -CHOLECYSTECTOMY -APPENDECTOMY - X 3 -HYSTERECTOMY WITH BILATERAL SALPINGO-OOPHORECTOMY -MECHANICAL MITRAL VALVE -ECHOCARDIOGRAM DONE HERE 04/2022 SHOWS MECHANICAL MITRAL VALVE -Cardiac catheterization according to the patient was done in 2019 in [facility] and it was normal prior to having her valve replacement. Did not require any stenting. valve replacement, patient has a card of [employer] mechanical valve, surgery was done [place] [address] Foster in [facility] (JUNIOR ENRIQUEZ) Physical Exam Vital Signs Vital Signs - First Documented 01/19/23 18:26 Temp 37.0 Pulse 84 Resp 19 B/P (MAP) 157/86 (109) Pulse Ox 99 O2 Delivery Room Air (RONNIE BAY MD) Height, Weight, BMI Height: '" Weight: lbs. oz. kg; 25.70 BMI Method: General Appearance: WD/WN, no apparent distress Eyes: bilateral eye normal inspection, bilateral eye PERRL, bilateral eye EOMI Ears: bilateral ear auricle normal, bilateral ear canal normal, bilateral ear bleeding Nose: other (Left naris without any active bleeding. Dried blood . no oral clots. No active bleeding in the back of the throat.) Mouth/Throat: normal mouth inspection, pharynx normal, dental tenderness Neck: non-tender, full range of motion, supple Cardiovascular: regular rate, rhythm, no edema Respiratory: chest non-tender, lungs clear, normal breath sounds, no respiratory distress, no accessory muscle use Gastrointestinal: normal bowel sounds, non tender, soft Neurologic/Psychiatric: clay maker II-XII nml as tested, no motor/sensory deficits, alert, normal mood/affect, oriented x 3 Skin: normal color, warm/dry (JUNIOR ENRIQUEZ) Progress/Results/Core Measures Results/Orders Lab Results Laboratory Tests Test 01/19/23 18:15 Range/Units Prothrombin Time 16.0 H 12.2-14.7 SEC INR Comment 1.3 0.8-1.4 Activated Partial Thromboplast Time 25 24-35 SEC (RONNIE BAY MD) Medications Given in ED Current Medications Medications Dose Ordered Sig/Cliff Route Start Time Stop Time Status Last Admin Dose Admin Ondansetron HCl 4 mg ONCE ONCE PO 01/19/23 18:45 01/19/23 18:46 DC 01/19/23 18:43 4 MG (RONNIE BAY MD) Vital Signs/I&O 01/19/23 18:26 Temp 37.0 Pulse 84 Resp 19 B/P (MAP) 157/86 (109) Pulse Ox 99 O2 Delivery Room Air (RONNIE BAY MD) Departure Communication (PCP) History of mechanical heart valve currently on warfarin. Presents ED with left nosebleed. She does have a history of hypertension. Her blood pressure 157/86. She had no active bleeding out of the left naris. This started this evening. She did pass a large clot. Bleeding seems to be fairly well controlled. Did squirt Afrin and clamp the nose for 30 minutes. Recheck with no active bleeding. There is no active bleeding in the back of the throat. Her INR is subtherapeutic at 1.3. Discussed these results with patient. At this time since there is no active bleeding we will discharge patient with the Afrin. Continue clamping the bleeding does continue at home with the Afrin. If profuse bleeding not well controlled to return back to ED. Provided ENT outpatient follow-up for further evaluation. (JUNIOR ENRIQUEZ) Impression Primary Impression: Epistaxis Disposition: 01 HOME, SELF-CARE Condition: Stable Departure-Patient Inst. Decision time for Depature: 18:46 (JUNIOR ENRIQUEZ) Referrals: CLAYTON LUGO APRN (PCP) Primary Care Physician [facility] [place] Primary Care Physician LINA SANDOVAL MD Patient Instructions: Nosebleeds (DC) Add. Discharge Instructions: Continue with the Afrin and clamping the nose. Your INR is 1.3. Continue monitoring blood pressure. If continued profuse bleeding to return back to ED unable to control with Afrin and direct pressure for 30 minutes. All discharge instructions reviewed with patient and/or family. Voiced understanding. ATTENDING PHYSICIAN NOTE: I was physically present as attending physician in the emergency department during the care of this patient, but I was not directly involved in the decision making or delivery of care for this patient. (RONNIE BAY MD) JUNIOR ENRIQUEZ Jan 19, 2023 18:15 RONNIE BAY MD Jan 20, 2023 03:10
[2023-01-19 18:26] VITALS: BP 157/86
[2023-01-19 18:37] LABS: INR 1.3 (0.8-1.4)
[2023-01-19] MEDS ORDERED: ONDANSETRON 4 MG ORAL DISSOLVE TABLET ONE (18:41)
[2023-01-19] MEDS ORDERED: ONDANSETRON 4 MG ORAL DISSOLVE TABLET PO ONE (18:45)
== END 2023-01-19 18:52 | disposition home or self-care (01) ==
LOC: EDUNIT# 17:59 → ER 18:02
DX: R04.0 Epistaxis (principal); F17.210 Nicotine dependence, cigarettes, uncomplicated; Z95.2 Presence of prosthetic heart valve; Z79.01 Long term (current) use of anticoagulants; Z28.310 Unvaccinated for COVID-19
CPT/HCPCS: 30905; 36415; 85610; 85730

== ENCOUNTER 2023-01-21 08:57 | Emergency (ER) | payer MEDICARE, MEDICAID ==
[~2023-01-21] VITALS: Ht 162 cm; Wt 65.0 kg
[2023-01-21 09:06] VITALS: BP 168/70
== END 2023-01-21 10:13 | disposition left against medical advice (07) ==
LOC: EDUNIT# 08:57 → ER 08:58
DX: R04.0 Epistaxis (principal)
CPT/HCPCS: 99281

== ENCOUNTER 2023-01-30 00:26 | Inpatient (IN) | payer MEDICARE, MEDICAID ==
[~2023-01-30] VITALS: Ht 154.9 cm; Wt 68.3 kg
[2023-01-30] MEDS ORDERED: LACTATED RINGERS 1,000 ML 1,000 ML IV ONE (00:45)
[2023-01-30 00:52] LABS: BASOPHILS % (AUTO) 0 % (0-10); EOSINOPHILS # (AUTO) 0.2 10^3/uL (0.0-0.3); EOSINOPHILS % (AUTO) 2 % (0-10); HEMATOCRIT 36 % (35-52); HEMOGLOBIN 11.1 g/dL (11.5-16.0); LYMPHOCYTES # (AUTO) 2.1 10^3/uL (1.0-4.0); LYMPHOCYTES % (AUTO) 19 % (12-44); MEAN CORPUSCULAR HEMOGLOBIN 23 pg (25-34); MEAN CORPUSCULAR HGB CONC 31 g/dL (32-36); MEAN CORPUSCULAR VOLUME 75 fL (80-99); MEAN PLATELET VOLUME 9.2 fL (9.0-12.2); MONOCYTES # (AUTO) 0.7 10^3/uL (0.0-1.0); MONOCYTES % (AUTO) 7 % (0-12); NEUTROPHILS # (AUTO) 7.7 10^3/uL (1.8-7.8); NEUTROPHILS % (AUTO) 72 % (42-75); PLATELET COUNT 309 10^3/uL (130-400); WHITE BLOOD COUNT 10.7 10^3/uL (4.3-11.0)
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
[2023-01-30 01:07] LABS: INR 1.1 (0.8-1.4); PROTHROMBIN TIME PATIENT 14.1 SEC (12.2-14.7)
[2023-01-30 01:08] LABS: CHLORIDE 107 MMOL/L (98-107); POTASSIUM 3.2 MMOL/L (3.6-5.0); SODIUM 138 MMOL/L (135-145)
[2023-01-30 01:10] LABS: AMYLASE 65 U/L (25-125); CALCIUM 8.9 MG/DL (8.5-10.1)
[2023-01-30 01:11] LABS: GLUCOSE 134 MG/DL (70-105); TOTAL PROTEIN 7.6 GM/DL (6.4-8.2)
[2023-01-30 01:12] LABS: CARBON DIOXIDE 18 MMOL/L (21-32)
[2023-01-30 01:13] LABS: BILIRUBIN,TOTAL 0.4 MG/DL (0.1-1.0)
[2023-01-30 01:15] LABS: ALKALINE PHOSPHATASE 62 U/L (40-136); CREATININE SERUM 0.88 MG/DL (0.60-1.30); GFR ESTIMATED 80
[2023-01-30] MEDS ORDERED: warFARin 5 MG (COUMADIN) TAB PO ONE (01:15)
[2023-01-30] MEDS ORDERED: POTASSIUM CHLORIDE 10 MEQ TABLET PO ONE (01:15)
[2023-01-30 01:16] LABS: BUN/CREATININE RATIO 6
[2023-01-30 01:16] LABS: AMPHETAMINE SCREEN, URINE NEGATIVE (NEGATIVE); BARBITURATE SCREEN URINE NEGATIVE (NEGATIVE); CANNABINOID SCREEN, URINE POSITIVE (NEGATIVE); CLARITY,URINE CLOUDY; COCAINE SCREEN URINE NEGATIVE (NEGATIVE); COLOR,URINE YELLOW; GLUCOSE, URINE (UA) NEGATIVE (NEGATIVE); METHADONE STAT NEGATIVE (NEGATIVE); OPIATE SCREEN URINE NEGATIVE (NEGATIVE); OXYCODONE STAT NEGATIVE (NEGATIVE); PROPOXYPHENE STAT NEGATIVE (NEGATIVE); PROTEIN,URINE 2+ (NEGATIVE); TRICYCLIC ANTIDEPRESSANTS SCRE NEGATIVE (NEGATIVE)
[2023-01-30 01:17] LABS: BACTERIA,URINE FEW /HPF; BILIRUBIN,URINE NEGATIVE (NEGATIVE); HYALINE CASTS, URINE 0-2 /LPF; KETONES,URINE TRACE (NEGATIVE); LEUKOCYTE ESTERASE ,URINE NEGATIVE (NEGATIVE); NITRITE,URINE NEGATIVE (NEGATIVE)
[2023-01-30 01:18] LABS: ALANINE AMINOTRANSFERASE 9 U/L (0-55); SALICYLATE < 5.0 MG/DL (5.0-20.0)
[2023-01-30 01:19] LABS: ACETAMINOPHEN 277 UG/ML (10-30)
[2023-01-30] MEDS ORDERED: ACETYLCYSTEINE IV ONE ×4 (01:30→08:00)
[2023-01-30] MEDS ORDERED: D5W IV ONE ×4 (01:30→08:00)
[2023-01-30] MEDS ORDERED: ENOXAPARIN 80 MG/0.8 ML SYRINGE SC ONE (01:30)
[2023-01-30] MEDS ORDERED: ACETYLCYSTEINE 6000 MG/30 ML ONE (01:31)
[2023-01-30] MEDS ORDERED: D5W (IVPB) 250 ML (EXCEL) 250 ML IV ONE (01:31)
[2023-01-30] MEDS ORDERED: D5W 500 ML IV SOLUTION 500 ML IV ONE (02:47)
[2023-01-30 02:50] VITALS: BP 150/76
[2023-01-30] MEDS ORDERED: D5 1/2NS + KCL 20 MEQ/L 1000ML 1,000 ML IV ONE (03:02)
[2023-01-30] MEDS ORDERED: PHARMACY TO DOSE PO SCH (04:00)
--- NOTE | 2023-01-30 04:09 | Tele-ICU Progress Note ---
Progress Note 52F with mechanical mitral valve, polysubstance abuse, HTN, HLD, depression with prior episodes of suicide attempts and self harm who is admitted after an intentional APAP overdose. Took an unknown quantity 45 min WELLNESS AMBASSADOR. On initial eval, APAP level already 277. - Acetaminophen OD: intentional. Suicide precautions and psych eval in AM. NAC initiated in ED, will continue. Repeat APAP level pending. Will continue to trend along with LFTs, INR q6 hrs. - mechanical valve: has not had AC or cardiology follow up in unknown duration of time. Coumadin 10 mg given in ED. Will take into account when monitoring INR for APAP toxicity. Given transient hypercoagulable state when intiating coumadin, will need lovenox bridging until therapuetic. Consider cardiology consult in AM for valve eval - will defer to primary. - polysub abuse: no evidence of withdrawal at this time. Will onitor. Supportive care. Patient assessed via real time audiovisual monitoring system. CCT 12 min Focused Exam Height, Weight, BMI Height: '" Weight: lbs. oz. kg; 28.46 BMI Method: BG OSORIO MD Jan 30, 2023 04:09
[2023-01-30] MEDS ORDERED: ONDANSETRON INJECTION 4 MG/2 ML (SDV) IV PRN (04:15)
[2023-01-30] MEDS ORDERED: D5 1/2NS + KCL 20 MEQ/L 1000ML 1,000 ML IV SCH (04:15)
[2023-01-30] MEDS: LACTATED RINGERS 1,000 ML 1,000 ML IV SCH ×3 (04:30→18:12)
[2023-01-30 05:08] LABS: BASOPHILS % (AUTO) 0 % (0-10); EOSINOPHILS % (AUTO) 0 % (0-10); HEMATOCRIT 31 % (35-52); HEMOGLOBIN 9.7 g/dL (11.5-16.0); LYMPHOCYTES % (AUTO) 26 % (12-44); MEAN CORPUSCULAR HEMOGLOBIN 23 pg (25-34); MEAN CORPUSCULAR HGB CONC 31 g/dL (32-36); MEAN CORPUSCULAR VOLUME 75 fL (80-99); MEAN PLATELET VOLUME 9.4 fL (9.0-12.2); MONOCYTES # (AUTO) 0.3 10^3/uL (0.0-1.0); MONOCYTES % (AUTO) 4 % (0-12); NEUTROPHILS # (AUTO) 5.5 10^3/uL (1.8-7.8); NEUTROPHILS % (AUTO) 69 % (42-75); PLATELET COUNT 253 10^3/uL (130-400)
[2023-01-30 05:26] LABS: INR 1.2 (0.8-1.4); PROTHROMBIN TIME PATIENT 15.7 SEC (12.2-14.7)
[2023-01-30 05:35] LABS: ALBUMIN 3.5 GM/DL (3.2-4.5); BILIRUBIN,TOTAL 0.3 MG/DL (0.1-1.0); CALCIUM 7.9 MG/DL (8.5-10.1); CREATININE SERUM 0.73 MG/DL (0.60-1.30); MAGNESIUM 1.8 MG/DL (1.6-2.4); PHOSPHORUS 3.1 MG/DL (2.3-4.7); POTASSIUM 3.6 MMOL/L (3.6-5.0); TOTAL PROTEIN 6.1 GM/DL (6.4-8.2)
[2023-01-30] MEDS ORDERED: NS IV 500 ML 500 ML IV PRN (05:45)
[2023-01-30] MEDS ORDERED: POTASSIUM BICARB 20 MEQ effervescent TABLET PO SCH (06:00)
[2023-01-30] MEDS ORDERED: POTASSIUM CHLORIDE 20 MEQ TABLET PO SCH (06:00)
[2023-01-30] MEDS ORDERED: POTASSIUM CL 10MEQ/50ML IVPB 50 ML IV SCH (06:00)
[2023-01-30] MEDS ORDERED: MAGNESIUM 1 GM/100 ML IVPB 100 ML IV SCH (06:00)
[2023-01-30] MEDS: MAGNESIUM 1 GM/100 ML IVPB 100 ML IV SCH ×3 (06:24→08:18)
[2023-01-30] MEDS ORDERED: POTASSIUM CHLORIDE 20 MEQ TABLET PO ONE ×3 (08:00→13:30)
[2023-01-30] MEDS ORDERED: OSELTAMIVIR 75 MG CAPSULE PO SCH (09:00)
[2023-01-30 11:09] LABS: INR 1.2 (0.8-1.4); POTASSIUM 3.2 MMOL/L (3.6-5.0); PROTHROMBIN TIME PATIENT 15.6 SEC (12.2-14.7)
[2023-01-30 11:10] LABS: ALBUMIN 3.3 GM/DL (3.2-4.5)
[2023-01-30 11:11] LABS: CALCIUM 7.9 MG/DL (8.5-10.1)
[2023-01-30 11:12] LABS: TOTAL PROTEIN 6.2 GM/DL (6.4-8.2)
[2023-01-30 11:14] LABS: BILIRUBIN,TOTAL 0.3 MG/DL (0.1-1.0)
[2023-01-30 11:16] LABS: CREATININE SERUM 0.69 MG/DL (0.60-1.30)
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
[2023-01-30 11:19] LABS: MAGNESIUM 3.1 MG/DL (1.6-2.4)
[2023-01-30] MEDS ORDERED: AMLO-250 PO (12:14)
[2023-01-30] MEDS ORDERED: LOSA25TA41 PO (12:14)
[2023-01-30] MEDS ORDERED: WARF-48 PO (12:14)
[2023-01-30] MEDS ORDERED: OSLT75C PO (12:17)
--- NOTE | 2023-01-30 12:18 | Discharge Summary ---
Diagnosis/Chief Complaint Date of Admission Jan 30, 2023 at 02:46 Date of Discharge Discharge Date: Jan 30, 2023 Discharge Diagnosis Suicide attempt s/p APAP OD Warfarin non-compliant with treatment Depression Discharge Summary Discharge Physical Examination Allergies: Coded Allergies: Penicillins (Verified Allergy, Unknown, 05/17/22) aspirin (Verified Allergy, Unknown, 05/17/22) diphenhydramine (Verified Allergy, Unknown, 05/17/22) morphine (Verified Allergy, Unknown, 05/17/22) tramadol (Verified Allergy, Unknown, 05/17/22) Vitals & I&Os Vital Signs Date Time Temp Pulse Resp B/P (MAP) Pulse Ox O2 Delivery O2 Flow Rate FiO2 01/30/23 18:00 72 16 98 Room Air 01/30/23 16:34 36.5 Hospital Course Was the Problem List Reviewed?: Yes Uneventful course after admitted following a suicide gesture with OD of APAP placed in ICU and Mucomyst infusions. Levels decreased rapidly indicating lower overdose than suspected so she was screened by [employer] and was assessed to be ready for DC Labs (last 24 hrs) Laboratory Tests 01/30/23 00:39: White Blood Count 10.7, Red Blood Count 4.77, Hemoglobin 11.1L, Hematocrit 36, Mean Corpuscular Volume 75L, Mean Corpuscular Hemoglobin 23L, Mean Corpuscular Hemoglobin Concent 31L, Red Cell Distribution Width 18.6H, Platelet Count 309, Mean Platelet Volume 9.2, Immature Granulocyte % (Auto) 0, Neutrophils (%) (Auto) 72, Lymphocytes (%) (Auto) 19, Monocytes (%) (Auto) 7, Eosinophils (%) (Auto) 2, Basophils (%) (Auto) 0, Neutrophils # (Auto) 7.7, Lymphocytes # (Auto) 2.1, Monocytes # (Auto) 0.7, Eosinophils # (Auto) 0.2, Basophils # (Auto) 0.0, Immature Granulocyte # (Auto) 0.0, Prothrombin Time 14.1, INR Comment 1.1, Activated Partial Thromboplast Time 28, Sodium Level 138, Potassium Level 3.2L, Chloride Level 107, Carbon Dioxide Level 18L, Anion Gap 13, Blood Urea Nitrogen 5L, Creatinine 0.88, Estimat Glomerular Filtration Rate 80, BUN/Creatinine Ratio 6, Glucose Level 134H, Calcium Level 8.9, Corrected Calcium 8.9, Total Bilirubin 0.4, Aspartate Amino Transf (AST/SGOT) 18, Alanine Aminotransferase (ALT/SGPT) 9, Alkaline Phosphatase 62, Total Protein 7.6, Albumin 4.0, Amylase Level 65, Serum Test, Qualitative NEGATIVE, Salicylates Level < 5.0L, Acetaminophen Level 277*H, Serum Alcohol < 10, Influenza Type A (RT-PCR) Not Detected, Influenza Type B (RT-PCR) DetectedH, SARS-CoV-2 RNA (RT-PCR) Not Detected 01/30/23 00:53: Urine Color YELLOW, Urine Clarity CLOUDY, Urine pH 5.0, Urine Specific [place] 1.025H, Urine Protein 2+H, Urine Glucose (UA) NEGATIVE, Urine Ketones TRACEH, Urine Nitrite NEGATIVE, Urine Bilirubin NEGATIVE, Urine Urobilinogen 0.2, Urine Leukocyte Esterase NEGATIVE, Urine RBC (Auto) 2+H, Urine RBC 2-5H, Urine WBC NONE, Urine Squamous Epithelial Cells 5-10, Urine Crystals NONE, Urine Bacteria FEWH, Urine Casts PRESENT, Urine Hyaline Casts 0-2H, Urine Mucus NEGATIVE, Urine Culture Indicated NO, Urine Opiates Screen NEGATIVE, Urine Oxycodone Screen NEGATIVE, Urine Methadone Screen NEGATIVE, Urine Propoxyphene Screen NEGATIVE, Urine Barbiturates Screen NEGATIVE, Ur Tricyclic Antidepressants Screen NEGATIVE, Urine Phencyclidine Screen NEGATIVE, Urine Amphetamines Screen NEGATIVE, Urine Methamphetamines Screen POSITIVEH, Urine Benzodiazepines Screen POSITIVEH, Urine Cocaine Screen NEGATIVE, Urine Cannabinoids Screen POSITIVEH 01/30/23 03:41: Acetaminophen Level 182#*H 01/30/23 04:52: White Blood Count 8.0, Red Blood Count 4.21, Hemoglobin 9.7L, Hematocrit 31L, Mean Corpuscular Volume 75L, Mean Corpuscular Hemoglobin 23L, Mean Corpuscular Hemoglobin Concent 31L, Red Cell Distribution Width 18.5H, Platelet Count 253, Mean Platelet Volume 9.4, Immature Granulocyte % (Auto) 0, Neutrophils (%) (Auto) 69, Lymphocytes (%) (Auto) 26, Monocytes (%) (Auto) 4, Eosinophils (%) (Auto) 0, Basophils (%) (Auto) 0, Neutrophils # (Auto) 5.5, Lymphocytes # (Auto) 2.0, Monocytes # (Auto) 0.3, Eosinophils # (Auto) 0.0, Basophils # (Auto) 0.0, Immature Granulocyte # (Auto) 0.0, Sodium Level 138, Potassium Level 3.6, Chloride Level 107, Carbon Dioxide Level 19L, Anion Gap 12, Blood Urea Nitrogen 4L, Creatinine 0.73, Estimat Glomerular Filtration Rate 100, BUN/Creatinine Ratio 5, Glucose Level 125H, Calcium Level 7.9L, Corrected Calcium 8.3L, Total Bilirubin 0.3, Aspartate Amino Transf (AST/SGOT) 11, Alanine Aminotransferase (ALT/SGPT) 10, Alkaline Phosphatase 49, Total Protein 6.1L, Albumin 3.5, Phosphorus Level 3.1, Magnesium Level 1.8 01/30/23 04:53: Prothrombin Time 15.7H, INR Comment 1.2 01/30/23 10:45: Prothrombin Time 15.6H, INR Comment 1.2, Sodium Level 137, Potassium Level 3.2L, Chloride Level 109H, Carbon Dioxide Level 19L, Anion Gap 9, Blood Urea Nitrogen 3L, Creatinine 0.69, Estimat Glomerular Filtration Rate 106, BUN/Creatinine Ratio 4, Glucose Level 102, Calcium Level 7.9L, Corrected Calcium 8.5, Magnesium Level 3.1H, Total Bilirubin 0.3, Aspartate Amino Transf (AST/SGOT) 14, Alanine Aminotransferase (ALT/SGPT) 9, Alkaline Phosphatase 50, Total Protein 6.2L, Albumin 3.3, Acetaminophen Level 19 01/30/23 17:08: Prothrombin Time 15.9H, INR Comment 1.3, Sodium Level 137, Potassium Level 4.1, Chloride Level 110H, Carbon Dioxide Level 19L, Anion Gap 8, Blood Urea Nitrogen 3L, Creatinine 0.72, Estimat Glomerular Filtration Rate 102, BUN/Creatinine Ratio 4, Glucose Level 96, Calcium Level 8.0L, Corrected Calcium 8.6, Magnesium Level 2.3, Total Bilirubin 0.2, Aspartate Amino Transf (AST/SGOT) 14, Alanine Aminotransferase (ALT/SGPT) 9, Alkaline Phosphatase 51, Total Protein 6.2L, Albumin 3.3, Acetaminophen Level < 10L Pending Labs Laboratory Tests 01/30/23 00:39: White Blood Count 10.7, Red Blood Count 4.77, Hemoglobin 11.1, Hematocrit 36, Mean Corpuscular Volume 75, Mean Corpuscular Hemoglobin 23, Mean Corpuscular Hemoglobin Concent 31, Red Cell Distribution Width 18.6, Platelet Count 309, Mean Platelet Volume 9.2, Immature Granulocyte % (Auto) 0, Neutrophils (%) (Au to) 72, Lymphocytes (%) (Auto) 19, Monocytes (%) (Auto) 7, Eosinophils (%) (Auto) 2, Basophils (%) (Auto) 0, Neutrophils # (Auto) 7.7, Lymphocytes # (Auto) 2.1, Monocytes # (Auto) 0.7, Eosinophils # (Auto) 0.2, Basophils # (Auto) 0.0, Immature Granulocyte # (Auto) 0.0, Prothrombin Time 14.1, INR Comment 1.1, Activated Partial Thromboplast Time 28, Sodium Level 138, Potassium Level 3.2, Chloride Level 107, Carbon Dioxide Level 18, Anion Gap 13, Blood Urea Nitrogen 5, Creatinine 0.88, Estimat Glomerular Filtration Rate 80, BUN/Creatinine Ratio 6, Glucose Level 134, Calcium Level 8.9, Corrected Calcium 8.9, Total Bilirubin 0.4, Aspartate Amino Transf (AST/SGOT) 18, Alanine Aminotransferase (ALT/SGPT) 9, Alkaline Phosphatase 62, Total Protein 7.6, Albumin 4.0, Amylase Level 65, Serum Test, Qualitative NEGATIVE, Salicylates Level < 5.0, Acetaminophen Level 277, Serum Alcohol < 10, Influenza Type A (RT-PCR) Not Detected, Influenza Type B (RT-PCR) Detected, SARS-CoV-2 RNA (RT-PCR) Not Detected 01/30/23 00:53: Urine Color YELLOW, Urine Clarity CLOUDY, Urine pH 5.0, Urine Specific [place] 1.025, Urine Protein 2+, Urine Glucose (UA) NEGATIVE, Urine Ketones TRACE, Urine Nitrite NEGATIVE, Urine Bilirubin NEGATIVE, Urine Urobilinogen 0.2, Urine Leukocyte Esterase NEGATIVE, Urine RBC (Auto) 2+, Urine RBC 2-5, Urine WBC NONE, Urine Squamous Epithelial Cells 5-10, Urine Crystals NONE, Urine Bacteria FEW, Urine Casts PRESENT, Urine Hyaline Casts 0-2, Urine Mucus NEGATIVE, Urine Culture Indicated NO, Urine Opiates Screen NEGATIVE, Urine Oxycodone Screen NEGATIVE, Urine Methadone Screen NEGATIVE, Urine Propoxyphene Screen NEGATIVE, Urine Barbiturates Screen NEGATIVE, Ur Tricyclic Antidepressants Screen NEGATIVE, Urine Phencyclidine Screen NEGATIVE, Urine Amphetamines Screen NEGATIVE, Urine Methamphetamines Screen POSITIVE, Urine Benzodiazepines Screen POSITIVE, Urine Cocaine Screen NEGATIVE, Urine Cannabinoids Screen POSITIVE 01/30/23 03:41: Acetaminophen Level 182 01/30/23 04:52: White Blood Count 8.0, Red Blood Count 4.21, Hemoglobin 9.7, Hematocrit 31, Mean Corpuscular Volume 75, Mean Corpuscular Hemoglobin 23, Mean Corpuscular Hemoglobin Concent 31, Red Cell Distribution Width 18.5, Platelet Count 253, Me an Platelet Volume 9.4, Immature Granulocyte % (Auto) 0, Neutrophils (%) (Auto) 69, Lymphocytes (%) (Auto) 26, Monocytes (%) (Auto) 4, Eosinophils (%) (Auto) 0, Basophils (%) (Auto) 0, Neutrophils # (Auto) 5.5, Lymphocytes # (Auto) 2.0, Monocytes # (Auto) 0.3, Eosinophils # (Auto) 0.0, Basophils # (Auto) 0.0, Immature Granulocyte # (Auto) 0.0, Sodium Level 138, Potassium Level 3.6, Chloride Level 107, Carbon Dioxide Level 19, Anion Gap 12, Blood Urea Nitrogen 4, Creatinine 0.73, Estimat Glomerular Filtration Rate 100, BUN/Creatinine Ratio 5, Glucose Level 125, Calcium Level 7.9, Corrected Calcium 8.3, Total Bilirubin 0.3, Aspartate Amino Transf (AST/SGOT) 11, Alanine Aminotransferase (ALT/SGPT) 10, Alkaline Phosphatase 49, Total Protein 6.1, Albumin 3.5, Phosphorus Level 3.1, Magnesium Level 1.8 01/30/23 04:53: Prothrombin Time 15.7, INR Comment 1.2 01/30/23 10:45: Prothrombin Time 15.6, INR Comment 1.2, Sodium Level 137, Potassium Level 3.2, Chloride Level 109, Carbon Dioxide Level 19, Anion Gap 9, Blood Urea Nitrogen 3, Creatinine 0.69, Estimat Glomerular Filtration Rate 106, BUN/Creatinine Ratio 4, Glucose Level 102, Calcium Level 7.9, Corrected Calcium 8.5, Magnesium Level 3.1, Total Bilirubin 0.3, Aspartate Amino Transf (AST/SGOT) 14, Alanine Aminotransferase (ALT/SGPT) 9, Alkaline Phosphatase 50, Total Protein 6.2, Albumin 3.3, Acetaminophen Level 19 10/13/23 17:08: Prothrombin Time 15.9, INR Comment 1.3, Sodium Level 137, Potassium Level 4.1, Chloride Level 110, Carbon Dioxide Level 19, Anion Gap 8, Blood Urea Nitrogen 3, Creatinine 0.72, Estimat Glomerular Filtration Rate 102, BUN/Creatinine Ratio 4, Glucose Level 96, Calcium Level 8.0, Corrected Calcium 8.6, Magnesium Level 2.3, Total Bilirubin 0.2, Aspartate Amino Transf (AST/SGOT) 14, Alanine Aminotransferase (ALT/SGPT) 9, Alkaline Phosphatase 51, Total Protein 6.2, Albumin 3.3, Acetaminophen Level < 10 Discharge Home Medications: Active Scripts Active Lovenox (Enoxaparin Sodium) 80 Mg/0.8 Ml Syringe 70 Mg SQ BID Tamiflu (Oseltamivir Phosphate) 75 Mg Cap 75 Mg PO BID Reported Losartan Potassium 25 Mg Tablet 25 Mg PO HS Amlodipine Besylate 5 Mg Tablet 5 Mg PO HS Warfarin Sodium 5 Mg Tablet 5 Mg PO HS Melatonin 5 Mg Tablet 5 Mg PO HS PRN Instructions to patient/family Please see electronic discharge instructions given to patient. SHAZIA GARCIA DO Jan 30, 2023 12:18
[2023-01-30] MEDS ORDERED: ENOXAPARIN 80 MG/0.8 ML SYRINGE SC SCH (16:00)
[2023-01-30] MEDS ORDERED: ENOX80DI12 SQ (16:03)
[2023-01-30 17:28] LABS: ALBUMIN 3.3 GM/DL (3.2-4.5); CHLORIDE 110 MMOL/L (98-107); INR 1.3 (0.8-1.4); POTASSIUM 4.1 MMOL/L (3.6-5.0); PROTHROMBIN TIME PATIENT 15.9 SEC (12.2-14.7); SODIUM 137 MMOL/L (135-145)
[2023-01-30 17:30] LABS: GLUCOSE 96 MG/DL (70-105); TOTAL PROTEIN 6.2 GM/DL (6.4-8.2)
[2023-01-30 17:32] LABS: BILIRUBIN,TOTAL 0.2 MG/DL (0.1-1.0); CARBON DIOXIDE 19 MMOL/L (21-32)
[2023-01-30 17:34] LABS: ALKALINE PHOSPHATASE 51 U/L (40-136); CREATININE SERUM 0.72 MG/DL (0.60-1.30); GFR ESTIMATED 102
[2023-01-30 17:35] LABS: BUN/CREATININE RATIO 4
[2023-01-30 17:37] LABS: ALANINE AMINOTRANSFERASE 9 U/L (0-55); MAGNESIUM 2.3 MG/DL (1.6-2.4)
[2023-01-30 17:49] LABS: ACETAMINOPHEN < 10 UG/ML (10-30)
[2023-01-30] MEDS ORDERED: warFARin 5 MG (COUMADIN) TAB PO SCH (18:00)
== END 2023-01-30 19:35 | disposition home or self-care (01) | DRG 918 ==
LOC: EDUNIT# 00:26 → ER 00:27 → ICU 02:46
PROVIDERS: ADMIT Family Medicine; ATTEND Internal Medicine
DX: T39.1X2A Poisoning by 4-Aminophenol derivatives, intentional self-harm, initial encounter (principal); F32.A Depression, unspecified; F41.9 Anxiety disorder, unspecified; F17.210 Nicotine dependence, cigarettes, uncomplicated; Z95.2 Presence of prosthetic heart valve; E78.00 Pure hypercholesterolemia, unspecified; J45.909 Unspecified asthma, uncomplicated; I10 Essential (primary) hypertension; F15.90 Other stimulant use, unspecified, uncomplicated; E87.6 Hypokalemia; F12.20 Cannabis dependence, uncomplicated; J10.1 Influenza due to other identified influenza virus with other respiratory manifestations; F19.10 Other psychoactive substance abuse, uncomplicated; Z20.822 Contact with and (suspected) exposure to COVID-19
CPT/HCPCS: 36415; 80053; 80306; 80320; 80329; 81000; 82150; 83735; 84100; 84703; 85025; 85610; 85730; 87081; 87636; 93005

== ENCOUNTER 2023-03-13 11:58 | Emergency (ER) | payer MEDICAID, MEDICARE ==
[~2023-03-13] VITALS: Ht 162.5 cm; Wt 71.2 kg
[~2023-03-13 11:58] MED LIST changes: +ENOX80DI12 SQ; +OSLT75C PO
--- NOTE | 2023-03-13 12:39 | ED GU-Female ---
General Chief Complaint: - Reproductive Stated Complaint: VAGINAL BLEEDING X10 DAYS AGO Nursing Triage Note: PT AMB TO [facility] 6 WITH COMPLAINT OF HEAVY MENSTRUAL BLEEDING. STATES SHE IS ON DAY 10 OF BLEEDING. STATES SHE TAKES COUMADIN FOR A MECHANICAL HEART VALVE. SENT BY [facility] FOR FURTHER EVALUATION Source: patient Exam Limitations: no limitations History of Present Illness Date Seen by Provider: Mar 13, 2023 Time Seen by Provider: 12:39 Initial Comments Patient is a 52-year-old female who presents to the emergency room with a chief complaint of heavy vaginal bleeding. She was seen at [facility] walk-in and advised to come to the ER for further evaluation. She states her period started 10 days ago and she is passing large numbers of "clots". Normally her cycle only lasts about 6 days. She states she is a little bit nauseated and has felt a little lightheaded when moving around. She is on Coumadin anticoagulation for a mechanical mitral valve placed 2 years ago at [facility]. Per review of her medical records at this facility she has never been therapeutic on her Coumadin. Long history of mental health disorder and polysubstance abuse. Patient denies chest pain today, shortness of breath. She states that she skipped her Coumadin dose last night because she thought it might slow down her bleeding. 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 Denies severe abdominal cramping/pain. No dysuria urgency or frequency. She states last normal menstrual cycle was about January 31. Timing/Duration: other (10 days) Activities at Onset: none Prior Genitourinary Problems: none Sexual [place] History: single partner Allergies and Home Medications Allergies Coded Allergies: Penicillins (Verified Allergy, Unknown, 05/17/22) aspirin (Verified Allergy, Unknown, 05/17/22) diphenhydramine (Verified Allergy, Unknown, 05/17/22) morphine (Verified Allergy, Unknown, 05/17/22) tramadol (Verified Allergy, Unknown, 05/17/22) Patient Home Medication List Home Medication List Reviewed: Yes Amlodipine Besylate (Amlodipine Besylate) 5 Mg Tablet, 5 MG PO HS, (Reported) Entered as Reported by: KARLEE SENA on 01/30/23 1214 Enoxaparin Sodium (Lovenox) 80 Mg/0.8 Ml Syringe, 70 MG SQ BID Prescribed by: VIN MEJIA on 01/30/23 1603 Losartan Potassium (Losartan Potassium) 25 Mg Tablet, 25 MG PO HS, (Reported) Entered as Reported by: KARLEE SENA on 01/30/23 1214 Melatonin (Melatonin) 5 Mg Tablet, 5 MG PO HS PRN for SLEEP, (Reported) Entered as Reported by: KARLEE SENA on 12/29/22 1046 Oseltamivir Phosphate (Tamiflu) 75 Mg Cap, 75 MG PO BID Prescribed by: SHAZIA GARCIA on 01/30/23 1217 Warfarin Sodium (Warfarin Sodium) 5 Mg Tablet, 5 MG PO HS, (Reported) Entered as Reported by: KARLEE SENA on 01/30/23 1214 Review of Systems Review of Systems Constitutional: see HPI EENTM: no symptoms reported Respiratory: no symptoms reported Cardiovascular: no symptoms reported Gastrointestinal: no symptoms reported Genitourinary: other (vaginal bleeding) Musculoskeletal: no symptoms reported Skin: no symptoms reported Psychiatric/Neurological: No Symptoms Reported Past [id number]-[id number] Hx Patient Social History Tobacco Use?: Yes Use of E-Cig and/or Vaping dev: No Substance use?: No Alcohol Use?: Yes Alcohol type: Beer Alcohol Frequency: Once in a while Pt feels they are or have been: No Immunizations Up To Date First/Initial COVID19 Vaccinat: DECLINED Second COVID19 Vaccination José Miguel: DECLINED Third COVID19 Vaccination Date: DECLINED Past Medical History Surgery/Hospitalization HX: MECHANICAL HEART VALVE REPLACEMENT, 3 C SECTIONS, GB, APPENDIX, CYST REMOVAL. MED HX: HTN, DEPRESSION,MIGRAINES, ASTHMA, UTI Surgeries: Yes (Ovarian cystectomy) Appendectomy, Cardiac, Section, Gallbladder, Valve Replacement Respiratory: Yes Asthma Cardiac: Yes High Cholesterol, Hypertension, Valvular Heart Disease Neurological: Yes (Occasional tremors, "brain lesions"; POOR MEMORY) Reproductive Disorders: No RETANNER History: Hysterectomy, Menopausal Genitourinary: No Gastrointestinal: No Musculoskeletal: Yes (Cervical spinal stenosis and chronic neck pain) Endocrine: No HEENT: Yes (Strabismus of right eye) Cancer: No Psychosocial: Yes Depression Integumentary: No Blood Disorders: No Family Medical History No Pertinent Family Hx SOCIAL HISTORY: -SMOKES 1 PPD -ETOH--"OCCASIONAL USE" -DRUGS--SMOKES THC DAILY, HX OF METH USE, ACID "AND ALOT OF OTHER STUFF". DENIES IV USE. STATES SHE SMOKES IT AND EATS IT; PAST SURGICAL HISTORY: -OVARIAN CYST REMOVED -CHOLECYSTECTOMY -APPENDECTOMY - X 3 -HYSTERECTOMY WITH BILATERAL SALPINGO-OOPHORECTOMY--PER PT, YET STATES SHE STILL HAS PERIODS, ON 01/30/23 -MECHANICAL MITRAL VALVE 2019 -ECHOCARDIOGRAM DONE HERE 04/2022 SHOWS MECHANICAL MITRAL VALVE -Cardiac catheterization according to the patient was done in 2019 in [facility] and it was normal prior to having her valve replacement. Did not require any stenting. valve replacement, patient has a card of Mobile-XL mechanical valve, surgery was done in [address] Foster in [facility] Semaj Physical Exam Vital Signs Vital Signs - First Documented 03/13/23 12:16 Temp 36.7 Pulse 84 Resp 16 B/P (MAP) 143/63 (89) Pulse Ox 99 O2 Delivery Room Air Capillary Refill : Less Than 3 Seconds Height, Weight, BMI Height: '" Weight: lbs. oz. kg; 26.00 BMI Method: General Appearance: WD/WN, no apparent distress HEENT: pale conjunctivae (R), pale conjunctivae (L) Neck: full range of motion Cardiovascular: regular rate, rhythm Respiratory: lungs clear, normal breath sounds, no respiratory distress, no accessory muscle use Gastrointestinal: soft, tenderness (mild tenderness suprapubic) Pelvic: other (deferred) Extremities: normal range of motion, non-tender, normal inspection Neurologic/Psychiatric: alert, normal mood/affect, oriented x 3 Skin: normal color, warm/dry Progress/Results/Core Measures Suspected Sepsis SIRS Temperature: Pulse: 84 Respiratory Rate: 16 Laboratory Tests 03/13/23 13:10: White Blood Count 6.7 Blood Pressure 143 /63 Mean: 89 Laboratory Tests 03/13/23 13:10: INR Comment 1.4, Platelet Count 301 Results/Orders Lab Results Laboratory Tests Test 03/13/23 13:10 Range/Units White Blood Count 6.7 4.3-11.0 10^3/uL Red Blood Count 3.39 L 3.80-5.11 10^6/uL Hemoglobin 7.9 L 11.5-16.0 g/dL Hematocrit 27 L 35-52 % Mean Corpuscular Volume 78 L 80-99 fL Mean Corpuscular Hemoglobin 23 L 25-34 pg Mean Corpuscular Hemoglobin Concent 30 L 32-36 g/dL Red Cell Distribution Width 18.6 H 10.0-14.5 % Platelet Count 301 130-400 10^3/uL Mean Platelet Volume 9.5 9.0-12.2 fL Immature Granulocyte % (Auto) 1 % Neutrophils (%) (Auto) 65 42-75 % Lymphocytes (%) (Auto) 23 12-44 % Monocytes (%) (Auto) 8 0-12 % Eosinophils (%) (Auto) 4 0-10 % Basophils (%) (Auto) 0 0-10 % Neutrophils # (Auto) 4.4 1.8-7.8 10^3/uL Lymphocytes # (Auto) 1.5 1.0-4.0 10^3/uL Monocytes # (Auto) 0.5 0.0-1.0 10^3/uL Eosinophils # (Auto) 0.3 0.0-0.3 10^3/uL Basophils # (Auto) 0.0 0.0-0.1 10^3/uL Immature Granulocyte # (Auto) 0.0 0.0-0.1 10^3/uL Prothrombin Time 17.7 H 12.2-14.7 SEC INR Comment 1.4 0.8-1.4 My Orders Orders - RODGER LEON MD Ed Iv/Invasive Line Start (03/13/23 12:46) Cbc And Automated Diff (03/13/23 12:46) Protime With Inr (03/13/23 12:46) Vital Signs/I&O Capillary Refill : Less Than 3 Seconds Blood Pressure Mean: 89 Progress Note : Time: 14:12 Progress Note Patient seen and evaluated by me. Evaluation today includes history and physical exam with CBC and PT/INR. Pertinent physical exam findings well- developed well-nourished female, no acute distress, stable vital signs. Heart is regular, lungs are clear. Abdomen is soft with mild suprapubic discomfort on palpation. No involuntary guarding or rebound. Pelvic exam is deferred at this time Differential diagnosis includes dysfunctional uterine bleeding, menorrhagia, supratherapeutic INR, anemia Patient's labs independently reviewed and interpreted by me. Her CBC shows normal white count with hemoglobin of 7.9, normal platelets. Her INR is 1.4. I discussed these findings with the patient, asked her about her compliance with her Coumadin, she states she takes it every day except last night when she did not take it because she thought it would help her bleeding slowed down. Stressed the importance to her of cardiology follow-up as she does not currently have a land use planner nor does she have a fence erector supervisor. Advised that she would need to follow-up with both of these physicians to further manage this bleeding. Her hemoglobin is not at a level that would require urgent transfusion. Her vital signs remained stable. Encouraged smoking cessation. Would have her also follow-up at [facility] with her primary care provider. The patient verbalized understanding of the plan of care. All questions are sought and answered. Departure Impression Primary Impression: Dysfunctional uterine bleeding Additional Impressions: Subtherapeutic international normalized ratio (INR) Anemia Qualified Codes: D64.9 - Anemia, unspecified Disposition: 01 HOME, SELF-CARE Condition: Stable Departure-Patient Inst. Decision time for Depature: 14:09 Referrals: KIM MILIAN MD FACP [facility] ROSA MARTINEZ MD, VICTORIA A DO WATSON, MAYRA L APRN (PCP) Primary Care Physician Patient Instructions: Heavy Periods ED Add. Discharge Instructions: You absolutely need to be on your Coumadin every day to protect your mechanical heart valve. Start an iron supplement daily such as VITRON C. I have provided the name of our cardiologists on your discharge paperwork, as well as the Gynecologists here locally. Please call for follow up with both of these doctors. If you have any worsening symptoms of palpitations, shortness of breath, passing out or any other emergent concerns - please return to the Emergency Department for re-evaluation. Please go ahead and take your coumadin today. Copy Copies To 1: REYES AMAYA KATHRYN M MD Mar 13, 2023 12:39
[2023-03-13 13:16] LABS: BASOPHILS % (AUTO) 0 % (0-10); EOSINOPHILS # (AUTO) 0.3 10^3/uL (0.0-0.3); EOSINOPHILS % (AUTO) 4 % (0-10); HEMATOCRIT 27 % (35-52); HEMOGLOBIN 7.9 g/dL (11.5-16.0); LYMPHOCYTES # (AUTO) 1.5 10^3/uL (1.0-4.0); LYMPHOCYTES % (AUTO) 23 % (12-44); MEAN CORPUSCULAR HEMOGLOBIN 23 pg (25-34); MEAN CORPUSCULAR HGB CONC 30 g/dL (32-36); MEAN CORPUSCULAR VOLUME 78 fL (80-99); MEAN PLATELET VOLUME 9.5 fL (9.0-12.2); MONOCYTES # (AUTO) 0.5 10^3/uL (0.0-1.0); MONOCYTES % (AUTO) 8 % (0-12); NEUTROPHILS # (AUTO) 4.4 10^3/uL (1.8-7.8); NEUTROPHILS % (AUTO) 65 % (42-75); PLATELET COUNT 301 10^3/uL (130-400); WHITE BLOOD COUNT 6.7 10^3/uL (4.3-11.0)
[2023-03-13 13:26] LABS: INR 1.4 (0.8-1.4); PROTHROMBIN TIME PATIENT 17.7 SEC (12.2-14.7)
[2023-03-13 14:22] VITALS: BP 136/65
== END 2023-03-13 14:22 | disposition home or self-care (01) ==
LOC: EDUNIT# 11:58 → ER 11:59
DX: N93.8 Other specified abnormal uterine and vaginal bleeding (principal); D64.9 Anemia, unspecified; R79.1 Abnormal coagulation profile; F17.210 Nicotine dependence, cigarettes, uncomplicated; Z95.2 Presence of prosthetic heart valve; Z79.01 Long term (current) use of anticoagulants
CPT/HCPCS: 36415; 85025; 85610

== ENCOUNTER → 2023-03-22 | Outpatient (CLI) | payer OTHER, MEDICARE ==
[2023-03-22 09:20] LABS: ABSOLUTE RETIC # 75 10e9/uL (24-90); RETICULOCYTE % 2.49 % (0.50-2.40)
[2023-03-22 17:01] LABS: BAND NEUTROPHILS 0 %; BASOPHILS % (MANUAL) 2 %; EOSINOPHILS % (MANUAL) 7 %; LYMPHOCYTES % (MANUAL) 17 %; MONOCYTES % (MANUAL) 4 %; NEUTROPHILS % (MANUAL) 70 %
[2023-03-22 17:02] LABS: ANISOCYTOSIS SLIGHT; ELLIPT/OVALOCYTES SLIGHT; HYPOCHROMASIA SLIGHT; MICROCYTOSIS SLIGHT
== END ==
LOC: LABNPT 08:08
PROVIDERS: ATTEND Nurse Practitioner Family
DX: D64.9 Anemia, unspecified (principal)
CPT/HCPCS: 85007; 85045; 85055